=== PATIENT | female | born 1995 | race Caucasian/White ===

== ENCOUNTER 2019-05-05 05:55 | Inpatient (IN) | payer BC, OTHER, SELFPAY ==
[2017-07-02 11:42] VITALS: BMI 29.1
[2019-05-05] MEDS: Oxytocin 30 units/NS 500 ml 30 UNITS/500 ML IV.SOLN 334 UNITS IV (06:05)
[2019-05-05 06:28] VITALS: BMI 29.2
--- NOTE | 2019-05-05 06:46 | HP.PCM_ITS ---
History Date of Admission: 05/05/19 History of this : Patient presents after delivery at home. She did not know that she was . She feels sore but otherwise is doing OK. Her vaginal bleeding is minimal. Medical History: Medical History (Last Updated 07/02/17 @ 11:51 by Mirtha Mojica) Anemia D64.9 Knee pain M25.569 Von Willebrand disease D68.0 Allergies aspirin Allergy (Verified 05/05/19 06:40) Unknown cant take d/t von wildebrandts NSAIDS (Non-Steroidal Anti-Inflamma Allergy (Verified 05/05/19 06:40) Other cant take d/t von wildebrands Home Medications: Home Medications Control 1 tab PO DAILY 12/02/14 Melatonin 10 mg PO QHS PRN 05/05/19 Multivitamin [Animal Chews] 1 ea PO 05/05/19 Smoking Status: Never smoker Alcohol: Rare History Past Pregnancies: Past Pregnancies Delivery Date Name GA/ Weeks Outcome Route Wt Infant Sex Labor Length Anesthesia Delivery Location Provider FOB Labs: No care Physical Exam General: Alert, Oriented x3 Abdomen: Soft, Non Tender, Non-Distended ORDERING MACHINE OPERATOR: Normal external genitalia - no vaginal lacerations Assessment/Plan All Active Problems (Last Updated 07/02/17 @ 11:51 by Mirtha Mojica) Pharyngitis, acute (Acute) This is a 23 year-old, G1, P1, s/p at home Heme - patient is HDS. H/o von willebrands disease. CBC pending. battery ordered. No care - check battery, urine toxicology & get social work consult.
[2019-05-05 07:09] LABS: Absolute Lymphocyte Count 0.88 X10^3/uL (0.83-4.51); Basophil# 0.03 X10^3/uL; Basophil% 0.2 % (0-1); Hematocrit 34.3 % (37-47); Hemoglobin 11.7 g/dL (12.0-15.0); Lymphocyte # 0.88 X10^3/ul (4.0); Lymphocyte % 4.5 % (19-41); Mean Corp Hgb Conc 34.1 g/dL (32-36); Mean Corpuscular Hgb 31.4 pg (27.0-32.0); Mean Platelet Vol. 11.2 fl (6.2-12.0); Monocyte# 0.65 X10^3/uL; Monocyte% 3.3 % (0-10); NRBC Flagged by Analyzer 0 % (0-5); Neutrophil # 17.95 X10^3/uL (2.7-7.7); Neutrophil % 91.5 % (47-70); POSITIVE MORPHOLOGY YES; Platelet Count 393 K/mm3 (150-450); RBC Distribution Width CV 12.8 % (11.6-14.6); RBC Distribution Width SD 43.1 fl (35.1-43.9); Red Blood Count 3.73 M/mm3 (4.2-5.4); White Blood Count 19.6 K/mm3 (4.4-11.0)
[2019-05-05 07:12] LABS: Differential Indicated SCAN CRITERIA MET
[2019-05-05 08:05] LABS: Amphetamine Urine VISTA NEGATIVE (<1000 ng/mL); Barbiturate Urine VISTA NEGATIVE (< 200 ng/mL); Benzodiazepine Urine VISTA NEGATIVE (< 200 ng/mL); Cocaine Urine VISTA NEGATIVE (< 300 ng/mL); Ecstacy Urine VISTA NEGATIVE (< 500 ng/mL); Methadone Urine VISTA NEGATIVE (< 300 ng/mL); PCP Urine VISTA NEGATIVE (< 25 ng/mL); THC Urine VISTA NEGATIVE (< 50 ng/mL); Vista UDS pH Range 5
--- NOTE | 2019-05-05 08:08 | NURSING ---
0808 late entry- delivered at 0500
[2019-05-05] MEDS: Acetaminophen 500 MG Tablet 1000 MG PO (08:11)
[2019-05-05 08:43] LABS: HIV - WCH Non-Reactive (Nonreactive); Hepatitis B Surface Antigen Non-Reactive (Nonreactive); Hepatitis C Antibody Non-Reactive (Nonreactive)
[2019-05-05 09:44] LABS: Chlamydia Trachomatis by PCR Negative (Negative); Neisserai gonorrhoeae by PCR Negative (Negative); Probe Check PASS; Sample Adequacy Control PASS; Specimen Processing Control PASS
[2019-05-05 13:35] VITALS: BP 113/73; PULSE 65; RESP 16; TEMP 36.7
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
[2019-05-05 17:00] VITALS: BP 103/65; PULSE 53; RESP 16; TEMP 36.2
--- NOTE | 2019-05-05 19:22 | PCM.PN.BLA ---
Progress Note At bedside to check on pt. She is doing well and desires to go home. Discussed PPBC- desires [place]. Reviewed discharge instructions. STROKE Vital Signs/Narrative: Vital Signs Temp Pulse Resp BP 05/05/19 17:00 97.2 F L 53 L 16 103/65
--- NOTE | 2019-05-05 19:23 | DCINST_ITS ---
Discharge Diet: No Restrictions Discharge Activity: May Shower, May Take a Tub Bath May resume sexual activity in: 6 weeks Ice area for (Minutes): 15 Weight Bearing Status: Weight bearing as tolerated Lifting Restrictions: None Call your doctor if you observe: Fever of 101 or Higher, Inability to urinate, Inability to have a bowel movement, Using more than one pad per hour, Shortness of breath, Dizziness, Chest pain, Increased palpitations (irregular heartbeat), Calf discomfort, Uncontrolled pain Cleanse incision/area with: Soap & Water Additional Instructions: If you experience any of the following, contact your healthcare provider. * Bleeding that soaks a pad every hour for 2 hours * Fever 100.4 or higher * Unrelieved incision or abdominal pain * Swelling, redness, discharge or bleeding from your incision or episiotomy site * Your incision begins to separate * Problems urinating (including inability to urinate or burning while urinating). * Visual changes * Severe headache * Flu-like symptoms * Pain or redness in one of both of your breasts * Pain, warmth, tenderness or swelling in your legs, especially the calf area * Frequent nausea and vomiting * Symptoms of depression or anxiety If you experience any of the following, call 911 or go to the nearest Emergency Room. * Chest pain * Problems breathing * Seizure activity * Partial or complete paralysis of a body part, slurred speech, weakness or drooping of the face, or a sudden inability to walk or hold your balance Allergies/Adverse Reactions: Allergies aspirin Allergy (Verified 05/05/19 06:40) Unknown cant take d/t von wildebrandts NSAIDS (Non-Steroidal Anti-Inflamma Allergy (Verified 05/05/19 06:40) Other cant take d/t von wildebrands Medications to take at Discharge Control 1 tab PO DAILY 12/02/14 Melatonin 10 mg PO QHS PRN 05/05/19 Multivitamin [Animal Chews] 1 ea PO 05/05/19 When: 1-2 weeks and in 6 weeks Primary Care Physician: Randi Connor MD [Primary Care Provider] - Test Results: Test results from this visit will be discussed in further detail at your follow- up appointment, if applicable.
[2019-05-05 21:02] VITALS: BP 104/75; PULSE 70; RESP 16; TEMP 37.2
[2019-05-08 03:26] LABS: Rapid Plasmin Reagin (RPR) NONREACTIVE (NONREACTIVE)
== END 2019-05-05 20:55 | disposition home or self-care (01) | DRG 998 ==
PROVIDERS: Admitting Provider Obstetrics & Gynecology; PCP Pediatrics; Visit Provider Obstetrics & Gynecology
DX: O99.12 Other diseases of the blood and blood-forming organs and certain disorders involving the immune mechanism complicating childbirth (principal); D68.0 Von Willebrand disease; Z3A.00 Weeks of gestation of pregnancy not specified; Z37.0 Single live birth
CPT/HCPCS: 80307; 85025; 86592; 86703; 86762; 86803; 86850; 86900; 86901; 87340; 87491; 87591; 90686

== ENCOUNTER → 2020-06-08 15:53 | Outpatient (CLI) | payer BC, OTHER, SELFPAY ==
[2020-06-15 10:32] LABS: CF, Screen Comment: (.)
== END ==
PROVIDERS: PCP Pediatrics; Visit Provider Obstetrics & Gynecology
DX: Z34.82 Encounter for supervision of other normal pregnancy, second trimester (principal)
CPT/HCPCS: 36415; 81220

== ENCOUNTER 2020-07-15 11:18 | Outpatient (CLI) | payer BC, SELFPAY ==
[2020-07-15 11:22] VITALS: PULSE 89; O2SAT 99
[2020-07-15 11:25] VITALS: BP 116/65; PULSE 87
[2020-07-15 11:31] VITALS: TEMP 36.7
[2020-07-15 11:54] VITALS: BMI 36.3
[2020-07-15 13:20] LABS: Bacteria 0 SEEN /hpf (None Seen); Mucous, Urine 0 SEEN /hpf (<or=2+); Red Blood Cells-Urine 0 SEEN /hpf (0-5)
[2020-07-15 13:22] LABS: Absolute Lymphocyte Count 2.24 X10^3/uL (0.83-4.51); Absolute Neutrophil Count 9.8 X10^3/uL (2.0-7.7); Basophil# 0.04 X10^3/uL; Basophil% 0.3 % (0-1); Eosinophils% 2.3 % (0-5); Hematocrit 35.1 % (37-47); Hemoglobin 11.6 g/dL (12.0-15.0); Lymphocyte # 2.24 X10^3/ul (0.83-4.51); Lymphocyte % 17.1 % (19-41); Mean Corpuscular Hgb 31.4 pg (27.0-32.0); Mean Corpuscular Volume 95.1 fL (81-99); Mean Platelet Vol. 10.6 fl (6.2-12.0); Monocyte# 0.58 X10^3/uL; Monocyte% 4.4 % (0-10); NRBC Flagged by Analyzer 0 % (0-5); Neutrophil # 9.84 X10^3/uL (2.7-7.7); Neutrophil % 75.4 % (47-70); Platelet Count 346 K/mm3 (150-450); RBC Distribution Width CV 13.9 % (11.6-14.6); RBC Distribution Width SD 48.9 fl (35.1-43.9); Red Blood Count 3.69 M/mm3 (4.2-5.4); White Blood Count 13.1 K/mm3 (4.4-11.0)
[2020-07-15 13:24] LABS: Color, Urine Yellow (Yellow); Glucose, Dipstick Normal (Normal); Ketone-Dipstick 15 mg/dl (Negative); Leukocyte Esterase-Dipstick 25 /ul (Negative); Nitrite-Dipstick Negative (Negative); Occult Blood-Urine Negative /ul (Negative); Protein-Dipstick Negative (Negative); Urine Bilirubin Dipstick Negative (Negative); Urine Clarity Clear (Clear); Urine Urobilinogen Normal (Normal)
[2020-07-15 13:29] LABS: Squamous Epithelial Cells - UA 0-5 SEEN /hpf (5-10); White Blood Cells 0-5 SEEN /hpf (0-5)
[2020-07-15 13:33] LABS: Protein, Urine (Random) 9.9 mg/dL (<11.9); Protein:Creat Ratio 170 mg/g CRE (0-200)
[2020-07-15 13:42] LABS: ALB/GLOB Ratio 0.6 RATIO (0.9-2.4); AST(SGOT) 28 U/L (15-37); Alanine Aminotransfer ALT/SGPT 15 U/L (13-56); Albumin, Serum 2.7 g/dL (3.2-5.0); Alkaline Phosphatase 91 U/L (45-117); Anion Gap 6 (5-15); BUN 5 mg/dL (7-18); BUN/Creat Ratio 9.2 RATIO (10-20); Calcium,Total 8.9 mg/dL (8.5-10.1); Chloride 108 mmol/L (98-107); Creatinine, Serum 0.54 mg/dL (0.55-1.02); EST Glomerular Filtration Rate 148 mL/min (>60); Est Glom Filt Rate - Afr Amer 179 mL/min (>60); Estimated Creatinine Clearance 139.92 ml/min; Globulin 4.6 g/dL (2.2-4.2); Glucose 70 mg/dL (74-106); LDH 336 U/L (84-246); Potassium 4.2 mmol/L (3.5-5.1); Protein, Total 7.3 g/dL (6.4-8.2); Sodium Level 137 mmol/L (136-145)
[2020-07-15 14:45] VITALS: BP 110/65; PULSE 89
--- NOTE | 2020-07-15 22:31 | OB.TRI.NOTE ---
HPI - General HPI Narrative TONNY RODRIGUES, is a 25 F at 26 weeks and 0 days with vaginal pressure and intermittent spots in her eyes for several weeks. PFSH Medical History (Updated 07/15/20 @ 22:[address] Terry Coe MD) Anemia Knee pain Von Willebrand disease Home Medications Control 1 tab PO DAILY 12/02/14 [History Last Taken 05/03/19 08:00] melatonin 10 mg PO QHS PRN 05/05/19 [History Last Taken 3 Months Ago ~02/02/19] norethindrone (contraceptive) 0.35 mg PO DAILY #30 tab 05/05/19 [Rx Last Taken Unknown] pediatric multivitamin 1 ea PO 05/05/19 [History Last Taken Unknown] Allergy/AdvReac Type Severity Reaction Status Date / Time aspirin Allergy Unknown Verified 05/05/19 06:40 NSAIDS (Non-Steroidal Allergy Other Verified 05/05/19 06:40 Anti-Inflamma Social History (Updated 07/02/17 @ 12:13 by He DELANEY, PA) Smoking Status: Never smoker History Elective abortions Hx Para 0 Spontaneous abortions Hx # Term Pregnancies Ectopic pregnancies Hx # Pregnancies Multiple births # of living children NST FHR Rate Baby A Baseline: 120 Variability:: Moderate Accelerations:: 10 x 10 Decelerations:: None NST Reactive:: Yes Uterine Activity:: Quiet Assessment & Plan Assessment/Plan (1) : Status: Acute Code(s): Z34.90 - Encounter for supervision of normal , unspecified, unspecified trimester Qualifiers: Weeks of gestation: 26 weeks Qualified Code(s): Z3A.26 - 26 weeks gestation of Plan: 25-year-old G2, P1 at 26 weeks and 0 days ruled out labor with closed cervix no signs of contractions on monitor. Intermittent spots in eyes for past several weeks blood pressures within normal limits and HELLP labs within normal limits. No signs of preeclampsia. Needs to p.o. hydrate and encourage balanced diet. Okay to discharge home, follow-up at scheduled appointments.
== END 2020-07-15 15:10 ==
LOC: WPOUT 11:21 → WP 11:22
PROVIDERS: PCP Pediatrics; Referring Provider Obstetrics & Gynecology; Visit Provider Obstetrics & Gynecology
DX: O26.892 Other specified pregnancy related conditions, second trimester (principal); Z3A.26 26 weeks gestation of pregnancy
CPT/HCPCS: 36415; 59025; 59050; 80053; 81001; 82570; 83615; 84156; 85025; 99218; G0378

== ENCOUNTER → 2020-07-29 10:08 | Outpatient (CLI) | payer BC, OTHER, SELFPAY ==
[2020-07-15 11:54] VITALS: BMI 36.3
[2020-07-29 11:06] LABS: Glucose Challenge Gest 1H 50g 124 mg/dL (70-140)
[2020-07-31 03:07] LABS: Chlamydia By Nucleic Acid AMP Negative (Negative)
[2020-07-31 09:32] LABS: Gonococcus By Nucleic Acid AMP Negative (Negative)
== END ==
PROVIDERS: PCP Pediatrics; Visit Provider Obstetrics & Gynecology
DX: Z34.83 Encounter for supervision of other normal pregnancy, third trimester (principal)
CPT/HCPCS: 36415; 82950; 87491; 87591

== ENCOUNTER → 2020-10-08 | Outpatient (CLI) | payer BC, OTHER, SELFPAY | END | disposition home or self-care (01) | LOC: LABSPEC 10:28 | PROVIDERS: PCP Pediatrics; Visit Provider Obstetrics & Gynecology | DX: Z36.85 Encounter for antenatal screening for Streptococcus B (principal) | CPT/HCPCS: 87081 ==

== ENCOUNTER 2020-10-25 16:03 | Inpatient (IN) | payer BC, SELFPAY ==
[2020-10-25] VITALS (20 sets, daily range): BP systolic 99–131; BP diastolic 59–79; PULSE 68–102; TEMP 36.4–36.7; O2SAT 89–100; BMI 36.5
[2020-10-25] MEDS: Lactated Ringers 1,000 ML 50 ML IV (16:20)
[2020-10-25 16:55] LABS: Absolute Lymphocyte Count 1.99 X10^3/uL (0.83-4.51); Absolute Neutrophil Count 8.4 X10^3/uL (2.0-7.7); Basophil# 0.03 X10^3/uL; Basophil% 0.3 % (0-1); Eosinophil# 0.04 X10^3/uL; Eosinophils% 0.4 % (0-5); Hematocrit 32.7 % (37-47); Hemoglobin 10.5 g/dL (12.0-15.0); Lymphocyte # 1.99 X10^3/ul (0.83-4.51); Lymphocyte % 17.9 % (19-41); Mean Corp Hgb Conc 32.1 g/dL (32-36); Mean Corpuscular Hgb 28.7 pg (27.0-32.0); Mean Corpuscular Volume 89.3 fL (81-99); Mean Platelet Vol. 11.4 fl (6.2-12.0); Monocyte# 0.62 X10^3/uL; Monocyte% 5.6 % (0-10); NRBC Flagged by Analyzer 0 % (0-5); Neutrophil % 75.3 % (47-70); Platelet Count 325 K/mm3 (150-450); RBC Distribution Width CV 15.5 % (11.6-14.6); RBC Distribution Width SD 49.8 fl (35.1-43.9); Red Blood Count 3.66 M/mm3 (4.2-5.4); White Blood Count 11.1 K/mm3 (4.4-11.0)
--- NOTE | 2020-10-25 17:52 | PCM.HP.BLA ---
History and Physical Date of Admission: 10/25/20 Chief complaint: Decreased movement History of present illness: 25-year-old G2, P1 at 40 weeks and 4 days with COMFORT: 10/21/2020 by 20wk U/s arrives with decreased movement since yesterday. Denies headache, vision changes, chest pain, shortness of breath, nausea vomiting, right upper quadrant pain. is complicated by von Willebrand's type I, history of depression, history of delivery at 29 weeks Obstetric history: G1: 29-week home delivery 05/05/2019 G2: Current Past medical history: Von Willebrand's type I Medications: vitamin Past surgical history: Denies Allergies: No known drug allergies Social history: Former smoker, denies alcohol use or drug use Family history: Denies history DVT or PE Review of systems: Besides the above pertinent positives a full review of systems was performed and found to be negative Physical exam: Vitals: Blood pressure 128/76 pulse 80 General: Normal-appearing no acute distress HEENT: Normocephalic atraumatic no cervical of adenopathy Cardiac/extremity: Nonlabored breathing, no use of accessory muscles Abdomen: Soft, nontender, gravid Pelvic exam: 4/60/-3. AROM clear fluid. FSE placed Extremities: No peripheral edema normal peripheral pulses Psych: Normal affect normal demeanor nonpressured speech Labs: White blood cell count 11.1, hemoglobin 10.5, hematocrit 32.7, platelets 325 Assessment plan: 25-year-old G2, P1 at 40 weeks and 4 days with decreased movement will perform induction of labor at term Admit labor and delivery CEFM GBS negative AROM and Pitocin induction Von Willebrand's type I: Sees Dr. Gerri Arellano who instructed for nasal Stimate immediately after delivery 1 spray each nostril. Can use DDAVP 0.3 mcg/kg every 12 hours if persistent bleeding. To follow-up with Dr. Miguelina Arellano within a week after delivery. No epidural during labor. Patient's recent labs show normal von Willebrand's factor. Routine orders
[2020-10-25] MEDS: 0.9% Normal Saline 100 ML IV.SOLN. 300 ML INTRA-UTER (18:23)
[2020-10-25] MEDS: Lactated Ringers 500 ML 999 ML IV ×2 (18:58→21:45)
--- NOTE | 2020-10-25 19:11 | PCM.PN.OB ---
Subjective Subjective Reports contractions are intense. Objective Data Objective Data Vital Signs: Vital Signs Temp Pulse BP Pulse Ox 97.6 F L 76 99/64 98 10/25/20 14:55 10/25/20 18:26 10/25/20 18:26 10/25/20 14:55 Weight: 93.44 kg Body Mass Index (BMI) 36.5 Intake & Output: Intake and Output for Last 24 Hours 10/23/20 10/24/20 10/25/20 23:59 23:59 23:59 Intake Total 212.50 / 212.50 Output Total 200 / 200 Balance 12.50 / 12.50 Lab / Micro Data Result Diagrams: 10/25/20 16:20 Labs: Laboratory Results - last 24 hr 10/25/20 16:20: WBC 11.1 H, RBC 3.66 L, Hgb 10.5 L, Hct 32.7 L, MCV 89.3, MCH 28.7, MCHC 32.1, RDW Std Deviation 49.8 H, RDW Coeff of Neyda 15.5 H, Plt Count 325, MPV 11.4, Immature Gran % (Auto) 0.500, Neut % (Auto) 75.3 H, Lymph % (Auto) 17.9 L, [place] % (Auto) 5.6, Eos % (Auto) 0.4, Baso % (Auto) 0.3, Absolute Neuts (auto) 8.4 H, Absolute Lymphs (auto) 1.99, Nucleated RBC % 0 10/25/20 16:20: Blood Type O POSITIVE, Antibody Screen NEGATIVE Physical Exam Const alert, oriented x3 and no apparent distress Narrative: /-1 per recent RN exam NST FHR Rate Baby A Baseline: 145 Variability:: Moderate Accelerations:: None Decelerations:: Variable NST Reactive:: Appropriate for gestational age FHR Category:: Category II Uterine Activity:: 05/26 Assessment & Plan (1) 40 weeks gestation of : PLAN: s/p amniotomy Amnioinfusion administered and fluid bolus given Variability improved from prior Continue expectant management (2) Von Willebrand disease, type I: PLAN: T&C x 2 U PRBC DDAVP intranasal planned for post delivery No epidural
[2020-10-26] VITALS (18 sets, daily range): BP systolic 104–130; BP diastolic 52–79; PULSE 64–90; RESP 16–18; TEMP 36.1–36.6; O2SAT 95–100
[2020-10-26] MEDS: Cefazolin 2 GM in 0.9% Normal Saline 100 ML IV (00:45)
[2020-10-26] MEDS: Methylergonovine 0.2 MG/ML Ampul IM (00:52)
--- NOTE | 2020-10-26 01:36 | EX.PCM.OBRPT ---
Assessment & Plan (1) delivery delivered: (2) Von Willebrand disease, type I: (3) Uterine rupture: Details Operative Information Date of Procedure: 10/26/20 Pre-Operative Diagnosis: 1. 40 5/7 weeks gestation 2. Persistent category 2 heart rate tracing 3. Von Willebrand disease type I Post-Operative Diagnosis: 1. 40-5/7 weeks gestation 2. Persistent category 2 heart rate tracing 3. Von Willebrand disease type I 4. Posterior uterine rupture Indications for : Distress Classification: AC Procedure Type: low transverse parole hearing officer #1: Fransisca Villegas Type of Anesthesia: General Anesthesiologist: Avi Meléndez Special Medications: DDAVP administered intranasally prior to section Tranexamic acid intraop Methergine intraop Antibiotic Given: Ancef 2 grams IV x1 and Zithromax 500 mg/5 mL X1 Drain: Hinds to straight drain Estimated Blood Loss: 1000 ml Fluids Replaced: 1000 ml Findings Description of Procedure: Indications: 25-year-old 2 para 0-1-0-1 admitted at 40-4/7 weeks gestational age with complaint of persistent decreased movement. She was 3 to 4 cm dilated and advised to proceed with induction of labor. Amniotomy was performed and she progressed to 8 cm dilation however had recurrent variable decelerations despite amnioinfusion and maternal repositioning, with dropping baseline. She was taken to the OR for double set up however with continued observation the heart rate tracing was nonreassuring and I advised her to proceed with section. Procedure: The patient was taken to the operating room, SCDs were applied and Hinds catheter placed. The abdomen was prepped and draped in sterile fashion. She was induced under general anesthesia and intubated. A Christian Hayden incision was made using a scalpel and brought down to incise the subcutaneous tissue and rectus fascia at the midline. Subcutaneous tissue was bluntly dissected off the fascia laterally. The fascial incision was dissected laterally and cephalad bluntly. The rectus muscles were bluntly at the midline. The peritoneum was identified and entered bluntly. Bladder blade was placed in the abdomen. A low transverse hysterotomy was made using the [Vazquez scissors] to level of the membranes with amniotomy. The hysterotomy was extended bluntly cephalad and caudad. The head was elevated and brought to the level of the hysterotomy and the delivered revealing a [female] . The cord was doubly clamped and cut. The infant was passed to awaiting [nursery personnel]. The placenta was [expressed] from the uterus and appeared intact on inspection. The uterus was exteriorized and cleared of debris. Small bowel was observed anterior to the left uterus and appeared to have traversed through the posterior uterus and through the anterior hysterotomy. The bowel was reduced and the posterior uterus inspected further demonstrating approximately 1-1/2 cm left posterior uterine wall defect in the lower segment. This area was clamped and notably appeared separate from the anterior hysterotomy. The hysterotomy was repaired anteriorly using 0 Vicryl running lock suture. Attention was turned posteriorly the bowel was packed and retracted. The posterior defect was reapproximated using 0 Vicryl running lock stitch. A second imbricating layer was performed with good hemostasis there. The bowel was unpacked. Attention was turned anteriorly and the anterior hysterotomy repair was imbricated using 0 Vicryl on the second layer. The bladder blade was removed. The anterior cul-de-sac was cleared of debris. The uterus and adnexa were returned to the abdomen. Some bleeding from the midline hysterotomy repair appeared to resolve following compression. Jose was placed along the hysterotomy for further hemostasis. The peritoneum was reapproximated using 2-0 Vicryl running suture. The subcutaneous tissue was reapproximated using 2-0 Vicryl. The skin was closed using 4-0 Monocryl subcuticularly by the DENTAL AIDE under my supervision. A Mepilex occlusive dressing was placed over the incision. The fundus was firm. The patient was then transferred to the recovery room without complication. Sponge, instrument, and needle counts were correct ?2. Presentation: Positive for Vertex Amniotic Membrane Rupture Type: Artificial Amniotic Fluid Description: Clear Placental Delivery Description: Expressed Placenta Disposition: [facility] Cord Vessel Description: 3 Vessels Cord Entanglement: - (Around neck x2, reducible) Nuchal Cord Compression: With compression Cord Gases: ABG and VBG A Gender: Female (1 minute): 7 (5 minute): 8 Delayed Cord Clamping: No Complications Risks of Surgery Discussed w/Patient: Bleeding, Anesthesia Risks, Infection, Injury to surrounding structure(s) including bowel and bladder and -
[2020-10-26] MEDS: Oxytocin 30 units/NS 500 ml 30 UNITS/500 ML IV.SOLN 167 UNITS IV (02:12)
[2020-10-26] MEDS: Acetaminophen 500 MG Tablet 1000 MG PO ×3 (02:29→20:31)
[2020-10-26] MEDS: 0.9% Saline Lock 10 ML Syringe IV ×2 (02:38→04:12)
[2020-10-26] MEDS: Ondansetron 4 MG/2 ML Vial IV ×3 (02:38→15:51)
[2020-10-26] MEDS: HYDROmorphone 1 MG/ML Syringe IV ×3 (04:12→15:51)
[2020-10-26] MEDS: Lactated Ringers 1,000 ML 100 ML IV ×2 (05:04→15:43)
[2020-10-26] MEDS: oxyCODONE 5 MG Tablet PO (06:15)
--- NOTE | 2020-10-26 08:07 | PCM.PN.OB ---
Subjective Subjective Patient doing well, no overnight complaints. Pain well controlled. Objective Data Objective Data Vital Signs: Vital Signs Temp Pulse Resp BP Pulse Ox 97.3 F L 65 16 112/52 L 96 10/26/20 08:03 10/26/20 08:03 10/26/20 08:03 10/26/20 08:03 10/26/20 08:03 Oxygen Delivery Method Room Air Weight: 206 lb Body Mass Index (BMI) 36.5 Intake & Output: Intake and Output for Last 24 Hours 10/24/20 10/25/20 10/26/20 23:59 23:59 23:59 Intake Total 1645.83 / 1645.83 1404.85 / 1404.85 Output Total 200 / 800 850 / 850 Balance 1445.83 / 845.83 554.85 / 554.85 Lab / Micro Data Result Diagrams: 10/25/20 16:20 Labs: Laboratory Results - last 24 hr 10/25/20 16:20: WBC 11.1 H, RBC 3.66 L, Hgb 10.5 L, Hct 32.7 L, MCV 89.3, MCH 28.7, MCHC 32.1, RDW Std Deviation 49.8 H, RDW Coeff of Neyda 15.5 H, Plt Count 325, MPV 11.4, Immature Gran % (Auto) 0.500, Neut % (Auto) 75.3 H, Lymph % (Auto) 17.9 L, Saunders % (Auto) 5.6, Eos % (Auto) 0.4, Baso % (Auto) 0.3, Absolute Neuts (auto) 8.4 H, Absolute Lymphs (auto) 1.99, Nucleated RBC % 0 10/25/20 16:20: Blood Type O POSITIVE, Antibody Screen NEGATIVE 10/25/20 16:20: Crossmatch See Detail Micro: Microbiology 10/25/20 16:20 Mucosa - Nose SARS-CoV-2 Antigen (Rapid) - Final Physical Exam Const alert, oriented x3, no apparent distress, average body habitus, healthy appearing and well nourished HEENT normocephalic and moist oral mucous membranes Face and Sinus: normal facial exam Neck full ROM Resp normal respiratory effort, no retractions and no use of accessory muscles Extremity normal to inspection, full ROM and no clubbing, cyanosis or edema Psych mental status grossly normal, affect normal, speech normal and activity/motor behavior normal Assessment & Plan (1) delivery delivered: PLAN: Postoperative day 0 status post primary section for nonreassuring heart tones. Pain well controlled. Breast-feeding. Von Willebrand's type I, given nasal Stimate prior to surgery, given Methergine, given TXA at time of surgery. At this time bleeding stable, will continue to monitor. Will treat if bleeding, otherwise expectant management
[2020-10-26] MEDS: Cefazolin 1 GM/50 ML BAG IV ×2 (09:15→17:49)
[2020-10-26 13:00] LABS: Absolute Lymphocyte Count 2.18 X10^3/uL (0.83-4.51); Absolute Neutrophil Count 11.2 X10^3/uL (2.0-7.7); Basophil# 0.03 X10^3/uL; Basophil% 0.2 % (0-1); Eosinophil# 0.03 X10^3/uL; Eosinophils% 0.2 % (0-5); Hematocrit 26.9 % (37-47); Hemoglobin 8.7 g/dL (12.0-15.0); Lymphocyte # 2.18 X10^3/ul (0.83-4.51); Mean Corp Hgb Conc 32.3 g/dL (32-36); Mean Corpuscular Hgb 28.9 pg (27.0-32.0); Mean Corpuscular Volume 89.4 fL (81-99); Monocyte# 1.03 X10^3/uL; Monocyte% 7.1 % (0-10); NRBC Flagged by Analyzer 0 % (0-5); Neutrophil # 11.22 X10^3/uL (2.7-7.7); Platelet Count 270 K/mm3 (150-450); RBC Distribution Width CV 15.5 % (11.6-14.6); RBC Distribution Width SD 50.5 fl (35.1-43.9); Red Blood Count 3.01 M/mm3 (4.2-5.4); White Blood Count 14.6 K/mm3 (4.4-11.0)
--- NOTE | 2020-10-26 13:03 | NURSING ---
Pt very lightheaded. Laid pt flat in bed. Pt states that she is still lightheaded. Called lab and asked them to run her CBC stat. See charting for vital signs. Abdomen soft, flat, non-distended, fundus firm, bleeding scant on becky pad
--- NOTE | 2020-10-26 13:15 | NURSING ---
Called Dr. Coe at this time to update on Pt's CBC results and that pt looks pale and is light headed while laying flat or sitting up in bed.Informed him of recent VS. States to do a repeat CBC around 1800. today
[2020-10-26 18:27] LABS: Absolute Lymphocyte Count 2.84 X10^3/uL (0.83-4.51); Absolute Neutrophil Count 10.6 X10^3/uL (2.0-7.7); Basophil# 0.02 X10^3/uL; Basophil% 0.1 % (0-1); Eosinophil# 0.06 X10^3/uL; Eosinophils% 0.4 % (0-5); Hematocrit 25.9 % (37-47); Hemoglobin 8.2 g/dL (12.0-15.0); Lymphocyte # 2.84 X10^3/ul (0.83-4.51); Lymphocyte % 19.8 % (19-41); Mean Corp Hgb Conc 31.7 g/dL (32-36); Mean Corpuscular Hgb 28.4 pg (27.0-32.0); Mean Corpuscular Volume 89.6 fL (81-99); Mean Platelet Vol. 11.1 fl (6.2-12.0); Monocyte# 0.84 X10^3/uL; Monocyte% 5.8 % (0-10); NRBC Flagged by Analyzer 0 % (0-5); Neutrophil # 10.56 X10^3/uL (2.7-7.7); Neutrophil % 73.6 % (47-70); Platelet Count 270 K/mm3 (150-450); RBC Distribution Width CV 15.7 % (11.6-14.6); RBC Distribution Width SD 50.8 fl (35.1-43.9); Red Blood Count 2.89 M/mm3 (4.2-5.4); White Blood Count 14.4 K/mm3 (4.4-11.0)
[2020-10-26] MEDS: Enoxaparin 40 MG/0.4 ML Syringe SC (20:31)
[2020-10-27] VITALS: BP 99/51; PULSE 73; RESP 16; TEMP 36.3; O2SAT 97
[2020-10-27] MEDS: Acetaminophen 500 MG Tablet 1000 MG PO ×4 (02:33→20:21)
--- NOTE | 2020-10-27 03:30 | NURSING ---
Pt had Hinds catheter in for over 24 hours due to pt's repeated lightheadedness, nausea, and vomiting with any movement/attempt to stand - MD aware.
[2020-10-27 03:31] VITALS: BP 110/54; PULSE 68; RESP 16; TEMP 36.4; O2SAT 95
[2020-10-27 06:30] LABS: Hematocrit 28.4 % (37-47); Mean Corp Hgb Conc 31.7 g/dL (32-36); Mean Corpuscular Hgb 28.9 pg (27.0-32.0); Mean Corpuscular Volume 91.3 fL (81-99); Mean Platelet Vol. 10.6 fl (6.2-12.0); Platelet Count 325 K/mm3 (150-450); RBC Distribution Width CV 15.9 % (11.6-14.6); RBC Distribution Width SD 51.8 fl (35.1-43.9); Red Blood Count 3.11 M/mm3 (4.2-5.4); White Blood Count 16.6 K/mm3 (4.4-11.0)
[2020-10-27 08:00] VITALS: BP 102/57; PULSE 82; RESP 16; TEMP 36.4; O2SAT 98
[2020-10-27 14:16] VITALS: BP 107/66; PULSE 84; RESP 16; TEMP 36.4; O2SAT 99
[2020-10-27] MEDS: oxyCODONE 5 MG Tablet PO (16:11)
[2020-10-27] MEDS: Ondansetron ODT 4 MG Tablet PO (16:11)
[2020-10-27] MEDS: Enoxaparin 40 MG/0.4 ML Syringe SC (18:51)
[2020-10-27 20:18] VITALS: BP 113/61; PULSE 91; RESP 18; TEMP 36.1; O2SAT 95
--- NOTE | 2020-10-27 21:21 | PCM.PN.OB ---
Subjective Subjective Pain is manageable with tylenol and oxycodone. She is out of bed, walking and voiding without difficulty. No flatus yet. She tolerates PO without nausea or vomiting. Denies heavy bleeding. She is and pumping to stimulate milk further. Objective Data Objective Data Vital Signs: Vital Signs Temp Pulse Resp BP Pulse Ox 97 F L 91 18 113/61 95 10/27/20 20:18 10/27/20 20:18 10/27/20 20:18 10/27/20 20:18 10/27/20 20:18 Oxygen Delivery Method Room Air Weight: 93.44 kg Body Mass Index (BMI) 36.5 Intake & Output: Intake and Output for Last 24 Hours 10/25/20 10/26/20 10/27/20 23:59 23:59 23:59 Intake Total 1645.83 / 1645.83 2704.85 / 2704.85 1000 / 1000 Output Total 200 / 800 1750 / 1750 400 / 400 Balance 1445.83 / 845.83 954.85 / 954.85 600 / 600 Lab / Micro Data Result Diagrams: 10/27/20 06:25 Labs: Laboratory Results - last 24 hr 10/27/20 06:25: WBC 16.6 H, RBC 3.11 L, Hgb 9.0 L, Hct 28.4 L, MCV 91.3, MCH 28.9, MCHC 31.7 L, RDW Std Deviation 51.8 H, RDW Coeff of Neyda 15.9 H, Plt Count 325, MPV 10.6 Micro: Microbiology 10/25/20 16:20 Mucosa - Nose SARS-CoV-2 Antigen (Rapid) - Final Physical Exam Const alert, oriented x3 and no apparent distress Resp normal respiratory effort, normal air movement and clear to auscultation bilaterally Cardio regular rate, regular rhythm, S1 normal heart sound and S2 normal heart sound GI normal to inspection, nondistended, normoactive bowel sounds, soft to palpation, non-tender and non-distended GI Narrative: incisional dressing c/d/i Narrative: Fundus firm and nontender Manual OB Exam: other lochia scant Uterus Palpation: uterus fundus firm Extremity no calf tenderness Extremity Narrative: no LE edema Assessment & Plan (1) delivery delivered: COMMENT: 25yo POD#1 s/p PLTCS PLAN: O positive Routine postop care Ambulation encouraged (2) Uterine rupture: QUALIFIERS: Encounter type: initial encounter Qualified Code(s): S37.69XA - Other injury of uterus, initial encounter (3) Von Willebrand disease, type I: PLAN: H/H stable Fe supplementation on discharge
[2020-10-28 02:25] VITALS: BP 106/81; PULSE 74; RESP 18
[2020-10-28] MEDS: Acetaminophen 500 MG Tablet 1000 MG PO ×3 (02:27→15:14)
[2020-10-28] MEDS: oxyCODONE 5 MG Tablet PO (04:59)
[2020-10-28] MEDS: Ondansetron ODT 4 MG Tablet PO (04:59)
--- NOTE | 2020-10-28 06:49 | PCM.PN.OB ---
Subjective Subjective Continues to do well this morning. No flatus yet or bowel movement. Pain is controlled and she feels less stiff today. Denies heavy lochia. Objective Data Objective Data Vital Signs: Vital Signs Temp Pulse Resp BP Pulse Ox 97 F L 74 18 106/81 H 95 10/27/20 20:18 10/28/20 02:25 10/28/20 02:25 10/28/20 02:25 10/27/20 20:18 Oxygen Delivery Method Room Air Weight: 93.44 kg Body Mass Index (BMI) 36.5 Intake & Output: Intake and Output for Last 24 Hours 10/26/20 10/27/20 10/28/20 23:59 23:59 23:59 Intake Total 2704.85 / 2704.85 1000 / 1000 Output Total 1750 / 1750 400 / 400 Balance 954.85 / 954.85 600 / 600 Lab / Micro Data Result Diagrams: 10/27/20 06:25 Micro: Microbiology 10/25/20 16:20 Mucosa - Nose SARS-CoV-2 Antigen (Rapid) - Final Physical Exam Const alert, oriented x3 and no apparent distress Resp normal respiratory effort, normal air movement and clear to auscultation bilaterally Cardio regular rate, regular rhythm, S1 normal heart sound and S2 normal heart sound GI normal to inspection, nondistended, normoactive bowel sounds, soft to palpation, non-tender and non-distended GI Narrative: incisional dressing c/d/i Manual OB Exam: other lochia scant Uterus Palpation: uterus fundus firm Extremity no calf tenderness Assessment & Plan (1) delivery delivered: COMMENT: 25yo POD#2 s/p PLTCS PLAN: Routine postop care Rh positive (2) Uterine rupture: QUALIFIERS: Encounter type: subsequent encounter Qualified Code(s): S37.69XD - Other injury of uterus, subsequent encounter PLAN: Reviewed intraop findings with patient Discussed small though increased risk for uterine rupture associated with future labor. (3) Von Willebrand disease, type I: PLAN: Normal postop lochia
--- NOTE | 2020-10-28 07:00 | PCM.DC ---
Discharge Instructions Diet Discharge Diet: No restrictions Activity Discharge Activity: Return to Normal Activity and May Shower May resume sexual activity in: 4-6 weeks Lifting Restrictions: 10 lb Dressing / Incision Call your doctor if you observe: Using more than 1 pad per hour, Shortness of breath, Chest pain, Calf discomfort, Uncontrolled pain and - (Persistent or severe headache) Suture Line Care: Avoid Pulling/Pushing Remove Dressing in: 4 days Cleanse incision/area with: Soap & Water Follow Up Care Please Follow Up With: Terry Coe MD Test Results: Test results from this visit will be discussed in further detail at your follow-up appointment, if applicable. Discharge Plan Admission Admit Date/Time: 10/25/20 16:03 Primary Reason for Your Visit: section Attending Provider: Ani Cunningham Primary Care Provider: Radni Connor Instructions Patient Instructions: After a Discharge Orders/Prescriptions Prescriptions: New acetaminophen 500 mg Tablet 1,000 mg PO Q6H PRN (Reason: pain) Qty: 0 RF: 0 oxycodone 5 mg Tablet 5 mg PO Q6H PRN PRN (Reason: Pain Score 4-10) 7 Days Qty: 12 RF: 0 Continued desmopressin 150 mcg/spray (0.1 mL) [place],Non-Aerosol INTRANASAL RF: 0 multivitamin with iron RF: 0 Disposition Disposition (needs filled in before D/C Order can be placed): Home, Self Care
[2020-10-28 09:00] VITALS: BP 112/65; PULSE 80; RESP 16; TEMP 36.3; O2SAT 97
[2020-10-28 15:16] VITALS: BP 120/74; PULSE 80; RESP 16; TEMP 36.3; O2SAT 98
== END 2020-10-28 17:20 | disposition home or self-care (01) | DRG 786 ==
LOC: WPOUT 16:05 → WP 10-26 00:57
PROVIDERS: Obstetrics & Gynecology; Admitting Provider Obstetrics & Gynecology; PCP Pediatrics; Referring Provider Obstetrics & Gynecology; Visit Provider Obstetrics & Gynecology
DX: O76 Abnormality in fetal heart rate and rhythm complicating labor and delivery (principal); O71.1 Rupture of uterus during labor; O99.12 Other diseases of the blood and blood-forming organs and certain disorders involving the immune mechanism complicating childbirth; D68.0 Von Willebrand disease; O69.1XX0 Labor and delivery complicated by cord around neck, with compression, not applicable or unspecified; Z3A.40 40 weeks gestation of pregnancy; Z37.0 Single live birth
CPT/HCPCS: 59025; 59050; 85025; 85027; 86850; 86900; 86901; 86920; 87426; 99218; 99251; J7120; A4216; G0378; G0463; J2405

== ENCOUNTER → 2021-09-09 | Outpatient (CLI) | payer BC, SELFPAY ==
[2021-09-09 11:53] LABS: D-Dimer Quantitative (DVT/PE) 0.39 FEU/ug/m (0.27-0.49)
== END | disposition home or self-care (01) ==
LOC: LABSPEC 11:19
PROVIDERS: PCP Pediatrics; Referring Provider Physician Assistant; Visit Provider Physician Assistant
DX: R07.81 Pleurodynia (principal)
CPT/HCPCS: 85379

== ENCOUNTER → 2021-10-19 | Outpatient (CLI) | payer BC, SELFPAY ==
[2021-10-19 10:58] LABS: Erythrocyte Sedimentation Rate 14 mm/hr (0-30)
[2021-10-19 11:09] LABS: CRP 4.64 mg/L (0.0-3.0)
== END | disposition home or self-care (01) ==
LOC: LABSPEC 10:49
PROVIDERS: PCP Pediatrics; Visit Provider Family Medicine
DX: K92.2 Gastrointestinal hemorrhage, unspecified (principal)
CPT/HCPCS: 85652; 86140

== ENCOUNTER 2022-07-25 22:31 | Emergency (ER) | payer MEDICAID, SELFPAY ==
[2022-07-25 22:33] VITALS: BP 122/78; PULSE 89; RESP 15; TEMP 36.3; O2SAT 98
[2022-07-25 23:31] VITALS: BMI 19.1
[2022-07-26] MEDS: Tetracaine 0.5% Ophthalmic Bottle 1 DRP LEFT EYE (00:14)
--- NOTE | 2022-07-26 00:44 | EX.ED.VIS.EY ---
HPI History of Present Illness Chief Complaint: Eye Problem Narrative Narrative: Patient is a 27-year-old female with past medical history of von Willebrand's disease. She states that she went to an eye doctor today because she was trying to get a fake eyelash out of her eye the other day and believes she scraped it with the tweezers. She states that the eye doctor confirmed she had a corneal abrasion and placed her on antibiotic drops. She states has been no new trauma but since using the drops she has had increased eye redness pain and discharge and therefore comes in for evaluation. She denies any contact lens use [facility] Medical History (Updated 07/26/22 @ 03:[address] Randall Lin, DO) Anemia Chlamydia infection affecting Knee pain MRSA infection depression Von Willebrand disease Home Medications desmopressin 150 mcg/spray (0.1 mL) nasal spray mcg intranasal von willebrand type 1 10/25/20 [History Last Taken 10/18/15] multivitamin with iron 10/25/20 [History Last Taken 10/24/20] acetaminophen 500 mg tablet 1,000 mg PO Q6H PRN pain #0 tabs 10/28/20 [Rx Last Taken Unknown] oxycodone 5 mg tablet 5 mg PO Q6H PRN PRN Pain Score 4-10 7 days #12 tabs 10/28/20 [Rx Last Taken Unknown] erythromycin 5 mg/gram (0.5 %) eye ointment 1 applic RIGHT EYE 4X/DAY 5 days #3.5 grams 07/26/22 [Rx Last Taken Unknown] Allergy/AdvReac Type Severity Reaction Status Date / Time aspirin Allergy Unknown Verified 07/25/22 22:36 NSAIDS (Non-Steroidal Allergy Other Verified 07/25/22 22:36 Anti-Inflamma Social History (Updated 07/02/17 @ 12:13 by He DELANEY, RHETT) Smoking Status: Never smoker ROS ROS ED Constitutional Constitutional ED: Denies chills or fever(s) Eyes Eyes: Reports other Details: Positive photophobia ENT ENT ED: Denies sore throat Cardiovascular Cardiovascular: Denies chest pain Respiratory/Chest Respiratory/Chest: Denies cough or dyspnea Gastrointestinal Gastrointestinal: Denies abdominal pain, diarrhea, nausea or vomiting Genitourinary Genitourinary ED: Denies dysuria Musculoskeletal Musculoskeletal: Denies myalgias Integumentary Denies rash Neurologic Neurologic: Denies headache(s) EXAM Physical Exam Const Vital Signs: 07/25/22 22:33 Temperature 97.4 F L Temperature Source Temporal Pulse Rate 89 Respiratory Rate 15 Blood Pressure 122/78 H Blood Pressure Mean 92 Pulse Ox 98 Oxygen Delivery Method Room Air Positive well nourished and well developed General Appearance ED: well developed HEENT HEENT Narrative: Normocephalic atraumatic Eyes PERRL and EOMs intact bilaterally Eyes Narrative: Right eye has diffuse scleral injection with increased watery discharge present. Cummings lamp exam shows a large corneal abrasion essentially from the 11 to 12 o'clock position extending over the iris and just over the pupil. No obvious retained foreign body or globe rupture Neck supple Resp normal respiratory effort and clear to auscultation bilaterally Cardio regular rate and regular rhythm Extremity normal to inspection Neuro oriented x3 and CN's II-XII intact bilaterally Sensorium / Orientation: alert Psych mental status grossly normal Skin no rashes or lesions noted MDM MDM MDM Narrative Medical decision making narrative: Patient presented to ER with stable vitals and reported no history of contact lens use. She also had already seen the eye doctor and had pictures of her recent exam confirming a corneal abrasion. There is no obvious signs of globe rupture or retained foreign body. There is concern that patient is allergic to the prescribed eyedrops based on her symptoms worsening after using them. Patient was given tetracaine and there was near complete relief of pain confirming recent diagnosis of corneal abrasion. At this time as there is no signs of retained foreign body or globe rupture there is no need for further evaluation and patient can be discharged with a new antibiotic and erythromycin ointment as there is concern for potential allergic reaction. However with out signs of sustained retained foreign body or globe rupture there is no need for emergent ophthalmology consultation and patient is otherwise safe for discharge History & Record Review Discussion w/independent historian: Patient and Friend Discharge Plan Triage Chief Complaint: Eye Problem ED Provider: Randall Lin Dx/Rx/DC Orders Clinical Impression: Corneal abrasion, right, Von Willebrand disease, type I Instructions: Corneal Injury, ED Corneal Abrasion Prescriptions: New erythromycin 5 mg/gram (0.5 %) ointment 1 applic RIGHT EYE 4X/DAY 5 Days Qty: 3.5 0RF No Action desmopressin 150 mcg/spray (0.1 mL) [place],Non-Aerosol INTRANASAL multivitamin with iron acetaminophen 500 mg Tablet 1,000 mg PO Q6H PRN (Reason: pain) Qty: 0 0RF oxycodone 5 mg Tablet 5 mg PO Q6H PRN PRN (Reason: Pain Score 4-10) 7 Days Qty: 12 0RF Stand Alone Forms: ED Work / School Excuse Primary Care Provider: Georgi Carrion Referrals: Georgi Carrion, [Primary Care Provider] - Activity Restrictions/Additional Instructions: Please stop the antibiotic drops that was prescribed by the eye doctor as there is a possibility your worsening symptoms are secondary to allergic reaction. Begin taking the erythromycin ointment to help prevent infection and return to the ER should you have any further concerns Disposition Disposition: Home, Self Care Discharge Date/Time: 07/26/22 00:49
== END 2022-07-26 00:49 | disposition home or self-care (01) ==
PROVIDERS: Emergency Provider Emergency Medicine; PCP Student in an Organized Health Care Education/Training Program; Visit Provider Emergency Medicine
DX: S05.01XA Injury of conjunctiva and corneal abrasion without foreign body, right eye, initial encounter (principal); D68.01 Von Willebrand disease, type 1; W26.8XXA Contact with other sharp object(s), not elsewhere classified, initial encounter
CPT/HCPCS: 99283

== ENCOUNTER 2023-06-11 08:00 | Outpatient (RCR) | payer MEDICAID, SELFPAY ==
--- NOTE | 2023-06-11 09:05 | BH.SGPN.GN ---
Behaviors/Verbalizations/Mental Status: [Patient was alert and oriented, appropriately dressed and groomed. Eye contact was good, motor activity normal, speech within normal limits. Affect congruent, mood anxious. Thoughts linear, logical, no signs of hallucinations or delusions. Reviewed Patients symptom tracker and the patient reports depressed mood, anxiety/panic attacks, agitation/irritability/anger, self-harm urges, and thoughts/risk of suicide within normal limits.] Client Response/Progress/Benefit: [Patient was engaged and open to the discussion. Patient reported her mood to be ?anxious because of anticipation?. Patients first win is that she was able to cope with the urge of self-harm by getting a new tattoo that represents courage and fear. Patients second win is that she has been letting someone help her be medication compliant because she knows she does better when medicated but struggles to take her meds. Patients stressor is making it through the program and proving to her family that she can and will get better for her children and herself. Patient was interactive and respectful with other group members about their mental wins and stressors. Patient benefited from the discussion by listening to feedback and giving input on her peer?s stressors and mental health wins. Patient will continue with IOP treatment to help develop healthy skills, promote mood stability, and improve distress tolerance. ] Narrative Note: []
--- NOTE | 2023-06-11 10:15 | BH.SGPN.GN ---
Behaviors/Verbalizations/Mental Status: [] Eye contact is good. Motor activity is appropriate. Appearance is casual. Speech is Appropriate. Mood is depressed. Affect is congruent. Thoughts are linear and logical. No evidence of psychosis. Client Response/Progress/Benefit: [] Pt was engaged and an active participant in group discussions. Attentive during psychoeducation and participated in group activity. Group discussed what contributes to a person?s perspective and how perspective can positively or negatively impact mental health treatment. Participated in group discussion on things that can interfere with perspective which group identified as; mood, physical state, past experiences, relationships, anger, current stressors, finances, and several others. Pt appeared to benefit from increasing awareness of different perspectives and how they can affect mental health. Pt will continue IOP treatment to prevent decompensation/re-admission to psych unit, maintain safety, and improve functioning to return to work. Narrative Note: []
--- NOTE | 2023-06-11 11:15 | BH.SGPN.GN ---
Behaviors/Verbalizations/Mental Status: []Pt alert and oriented, casually dressed and groomed. Eye contact good. Motor activity appropriate. Speech within normal limits. Affect congruent, mood depressed and anxious. Thoughts linear, logical, no signs of hallucinations or delusions. Client Response/Progress/Benefit: []Pt was attentive and contributed to group discussion. Pt worked with group to identify strategies that can help with challenging negative perspective. Pt completed strengths exploration worksheet, identifying love, humor, optimism, empathy, and creativity as personal strengths. Pt able to acknowledge how these strengths are helping pt and can continue to help pt in mental health journey. Pt identified wanting to work on applying the same bentley to herself as she would others. Benefited from identifying personal strengths and strategies for enhancing use of identified strengths. Pt will continue IOP tx to work on application of distress tolerance skills, improve mood stability, and prevent decompensation. Narrative Note: []
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
--- NOTE | 2023-06-11 15:07 | BH.MTP_ITS ---
Master Treatment Plan Patient Information Program Physician:: Dr. Goode Primary Therapist:: Kirsten Falk [facility] Psychiatric Diagnoses Psychiatric Diagnoses:: 1. Bipolar 2 disorder F31.81 2. PTSD 3. Generalized anxiety disorder 4. Cluster B traits Diagnosis Code(s):: F31.81 Estimated LOS Estimated LOS (in weeks):: 6 Problem/Goal #1 Problem/Goal #1 Stated Goal:: Client will increase mood stability and decrease depressive symptoms, anhedonia, and hopelessness due to Bipolar 2 through Intensive Outpatient Program. Description of Barriers: Potential barriers include: negative thinking, cognitive distortions, apathy, hopelessness, and complicated family relationshi ps. Functional Impact: The patient is a 28-year-old but still female with a history of bipolar 2 disorder and ADHD who was referred to the [facility] behavioral health IOP by her outpatient psychiatric provider for worsening symptoms of depression and anxiety causing her to be unable to function well. admitted to [facility] psychiatric unit from May 11 to May 18, 2023. The patient overdosed on Zoloft prior to her admission on May 11. Work has been stressful and has contributed to her worsening symptoms as did a recent break-up with a boyfriend of 6 weeks. She has panic attacks 1-3 times per day. In the past 2 weeks her symptoms include still being depressed and sad and crying on occasion. Occasional hopelessness over certain aspects of her life only. She endorses worthlessness, guilt, decreased concentration, low energy, disruption of sleep due to panic attacks overnight and decreased appetite. Objectives Objective #1: Stated Objective: Client will learn and utilize 2-3 healthy coping strategies to manage depressive symptoms. Interventions: Therapist will utilize CBT techniques to assist client with understanding the connection between thoughts, feelings and behaviors. Education will be provided on behavioral activation. Therapist will assist client in learning internal coping strategies to manage depressive symptoms, along with helping client identify triggers. Discharge Criteria: Client will have achieved this goal when can verbalize and has practiced at least 2 healthy coping strategies that successfully manage depressive symptoms. Target Date: 07/23/23 Review Date: 07/09/23 Objective #2: Stated Objective: Client will identify and replace 2-3 negative thinking patterns that mediate feelings of hopelessness and helplessness. Interventions: Assist the client in identifying, challenging, and replacing dysfunctional thoughts with positive self-enhancing thoughts. Discharge Criteria: Client will have achieved this goal when can identify at least 2 negative thinking patterns, and replace thoughts with rational thoughts. Target Date: 07/23/23 Review Date: 07/09/23 Problem/Goal #2 Problem/Goal #2 Stated Goal:: Stabilize anxiety level while increasing ability to function on daily basis. Description of Barriers: Potential barriers include: negative thinking, cognitive distortions, apathy, hopelessness, and complicated family relationship s. Functional Impact: The patient is a 28-year-old but still female with a history of bipolar 2 disorder and ADHD who was referred to the [facility] behavioral health IOP by her outpatient psychiatric provider for worsening symptoms of depression and anxiety causing her to be unable to function well. admitted to [facility] psychiatric unit from May 11 to May 18, 2023. The patient overdosed on Zoloft prior to her admission on May 11. Work has been stressful and has contributed to her worsening symptoms as did a recent break-up with a boyfriend of 6 weeks. She has panic attacks 1-3 times per day. In the past 2 weeks her symptoms include still being depressed and sad and crying on occasion. Occasional hopelessness over certain aspects of her life only. She endorses worthlessness, guilt, decreased concentration, low energy, disruption of sleep due to panic attacks overnight and decreased appetite. Objectives Objective #1: Stated Objective: Client will learn and implement 2-3 calming skills to reduce overall anxiety and manage anxiety symptoms. Interventions: Therapist and group sessions will help client identify physiological warning signs of anxiety, increase awareness of thoughts that increase anxiety, and identify behaviors that reinforce anxious symptoms. Group and individual counseling will teach client calming skills to help manage anxious symptoms. Discharge Criteria: Client will have achieved this goal when can verbalize at least 2 calming skills and reports skills successfully help reduce anxious symptoms. Target Date: 07/23/23 Review Date: 07/09/23 Objective #2: Stated Objective: Client will learn and utilize 2-3 relaxation skills to utilize at bedtime. Interventions: Therapist will teach client relaxation skills and help client identify ways to incorporate relaxation into daily bedtime routine. Discharge Criteria: Client will have met this goal when she can verbalize at least 2 relaxation skills and has incorporated those skills into her bedtime routine. Target Date: 07/23/23 Review Date: 07/09/23
--- NOTE | 2023-06-12 09:05 | BH.SGPN.GN ---
Behaviors/Verbalizations/Mental Status: [] Eye contact is good. Motor activity is appropriate. Appearance is casual. Speech is Appropriate. Mood is depressed. Affect is congruent. Thoughts are linear and logical. No evidence of psychosis. Reviewed daily check in sheet and no reports of suicidal ideations or intent. Client Response/Progress/Benefit: [] Pt was an active participant in group discussion. Attentive. Daily symptom tracker notes 04/23 for depression and anxiety. This was pt's second day in IOP. She completed opposite action yesterday and had a picnic in the park with family rather than isolate. Discussed the benefits that this had on her mental health it recharged me and helped her live in the moment . Insight on how small actions can impact her overall mental health. Benefited from group support, encouragment, and feedback. Will continue in IOP to maintain safety, prevent decompensation/re-admission to psych unit, and to improve functioning to return to work. Narrative Note: []
--- NOTE | 2023-06-12 10:10 | BH.SGPN.GN ---
Behaviors/Verbalizations/Mental Status: []Client alert and oriented, casually dressed and groomed. Eye contact good. Motor activity appropriate. Speech within normal limits. Affect congruent, mood euthymic. Thoughts linear, logical, no signs of hallucinations or delusions. Client Response/Progress/Benefit: []Client receptive to session AEB providing input throughout, listening attentively to others, and taking notes. Attentive throughout psychoeducation on the cognitive triangle and maintenance cycles. Engaged in group discussion reviewing the impact of daily activities and behaviors in either reinforcing unhealthy maintenance cycles and depression or assisting in reducing symptoms (?down? vs ?up? activities). Client identified common ?down? activities they engage in as: Not eating, lack of self-care, overthinking, isolation, and avoidance. Common ?Up? activities client identified included: Meal planning, cleaning, engaging in self-care, maintaining a bedtime routine. Appeared to benefit from increased awareness of current behaviors and impact these have on mental health. Recommended to continue IOP to improve distress tolerance, improve view of self, and prevent decompensation.
--- NOTE | 2023-06-12 11:15 | BH.SGPN.GN ---
Behaviors/Verbalizations/Mental Status: []Eye contact is good. Motor activity is appropriate. Appearance is neat. Speech is Appropriate. Mood is euthymic. Affect is congruent. Thoughts are linear and logical. No evidence of psychosis. Client Response/Progress/Benefit: [] Pt responded well to session, attentive and engaged in group discussions and activity. Group discussed values and the benefits that knowing one's values can have on one's mental health. Pt explored own values and identified personal top values. Pt stated a personally important value is mental and emotional health. Pt set a goal to improve engagement in this value. Goal identified as challenging negative self-talk by saying one affirmation a day. Pt appeared to benefit from exploring values and creating a weekly goal. Pt also reported benefitting from the activity and the group encouragement today. Will continue in IOP to prevent decompensation, improve daily functioning, and increase healthy coping skills. ? Narrative Note: []
--- NOTE | 2023-06-12 14:02 | BH.MDN_ITS ---
Multi-Disciplinary Note Note 30-min Individual: Time Started:: 12:10 Date: 06/12/23 Purpose of session/treatment goals addressed:: Purpose of session was to address goals 1 and 2 from MTP. Eye Contact:: Good Motor Activity:: Appropriate Appearance:: Casual Speech:: Appropriate Mood:: Euthymic Affect:: Congruent Thoughts:: Linear, Logical and No evidence of hallucinations/delusions noted Staff Interventions:: CBT techniques, mindfulness skills, rapport building, strengths perspective, goal setting, taught coping skills and other (creating evening routine/schedule) Client Response:: Client reported overall her evening went okay, spending time thinking about what her routine can look like to help decrease ruminations. Client stated her sleep continues to be disrupted because she has nightmares every time she dreams which wakes her up in the middle of the night. Client stated she is taking a sleeping medication which helps her fall asleep, but is not helping her stay asleep. Therapist provided client with a nighttime routine check-list that she could reference and adjust to what she wants to do. Client stated she does think the checklist would be helpful because it keeps her focused on what needs to get done and can help her stay on track. Client and therapist worked together to create tentative evening routine that she could follow that incorporates self-care into her routine. Client stated she will try the routine out the next few nights and report back on how she thinks it is going. Risks/Concerns:: Client denies active suicidal ideation, plan, or intention to date. future oriented. identifies children as protective factor. Progress Toward Goals/Plan:: Client stated so far enjoying IOP because she is learning a lot of healthy skills and learning a lot about herself. Client reported a lot of the things that have been talked about in group are things she wasn't aware of and is happy to be learning how to manage her mental health b ashley. Client continues to report difficulty in the evening with increased ruminations and disrupted sleep. Client is to continue IOP to increase healthy coping, improve daily functioning, and prevent decompensation. Time Stopped:: 12:35
--- NOTE | 2023-06-13 09:30 | BH.NA ---
Physical Data Vital Signs Pulse Rate: 83 Blood Pressure: 124/77 Height/Weight Height: 1.6 m Weight:: 77.111 kg Weight in Pounds: 170.0 lbs Current Medication Compliance Medication Compliance Do you take your medication as prescribed?: Yes Nutritional History Appetite Nutritional Instructions: Describe your appetite:: Fair Additional nutritional information:: Client states in the last few months, her weight has fluctuated up and down a lot (she has lost 20lbs in 2 weeks, then gained 20lbs in 2 weeks). Functional Assessment Sleep Pattern Describe any problems with sleeping: Client states she has been sleeping about 4 hours per night. Sensory/Communication Assess Communication Problems Do you have difficulty understanding what people are saying?: No Medical Problems/History Hematologic Conditions Hematologic: Other (See comments) (Von Willebrand type 1, anemia) Gastrointestinal Conditions Gastrointestinal: Other (See comments) (Client says she has had a colonscopy, and is currently getting worked up for possible celiac disease or may have IBS) Pain Assessment Do you have acute or chronic pain?: No Additional History Additional comments:: uterine rupture with 2nd , low iron Surgical History Surgical History Have you had any surgeries? If so, list type and date:: Yes ( x 1) Substance Abuse Substance Abuse Please describe substance abuse in the last 30 days:: Client reports some social alcohol use. Client states she currently occasionally vapes nicotine, but not on a daily basis. Client denies substance use. Client states she drinks 1-2 cups of coffee per day. Mental Status Summary Mental Status Significant Findings/Observations on Appearance and Mood:: Client is alert and oriented x 4. Client is casually groomed with good hygiene. Client is cooperative with assessment. Client makes good eye contact. Client's voice has normal rate and volume. Client has a somewhat restricted affect. Client makes logical associations and has normal processing. Client denies delusions/hallucinations. Client denies current SI, but states she does at times think why am I still here? but states her children are her protective factor. Suicide Assessment Suicidal Ideation Are you currently or have you been suicidal in the past?: Yes Suicidal Intentional Rating Scale (SIRS): Suicidal thoughts (past) Physician Notification Past Psychiatric History MH Treatment Hx Past Psychiatric Medications:: Adderall (recently was took off this), Cymbalta (caused internal bleeding) Age of first mental health symptoms: Client reports a history of ADHD, and PPD after having her kids. Client states her outpatient psych provider has discussed she may possibly have bipolar 2. Describe (age, circumstance, etc) any past hospitalizations: [facility] 05/11-05/18/23 for feeling suicidal, after taking 1/2 a bottle of Zoloft a couple of days before Current providers for mental health treatment (counselor, psychiatrist, case monitor, etc.): YULISA Kenny, at [facility] Fall Risk Assessment Age Age: Less than 60 Mental Status Mental Status: Willing & able to ask for assistance when needed Physical Status Physical Status: No problems Impairments Impairments: None Elimination Elimination: Continent AND independent Gait or Balance Gait or Balance: Walks independently Hx of Falls History of falls in the past 6 months: No known history Medications/Substances Psychotropics:: Antidepressants and Antipsychotics Medications/substances used within the past 24 hours or ordered to administer: 1-2 of the medications/substances listed above Total Score Total Points:: 1 RN Summary of Impressions Impressions Recommendations Impressions: Psychiatric Issues: 1. Bipolar 2 disorder 2. PTSD 3. Generalized anxiety disorder 4. Cluster B traits 5. Primary support and work issues 6. ADHD diagnosed at age 24. Level of Care How do the client's current symptoms and functional deficits support need for this level of care?: Client was referred to IOP by her outpatient psychiatry provider after a recent hospitalization at [facility] 05/11-05/18/23 after an overdose attempt. Client states I feel like I have just gone from one trauma to another for basically my whole life and never had time to deal with it and it's catching up with me. Client denies SI now since being discharged from the hospital, but does states she has some passive why am I here? thoughts but states her kids are a strong protective factor. Client does report daily panic attacks lately that do not always seem to have a trigger. Client also reports low energy and motivation. IOP will promote gains and prevent further decompensation while providing social support and skills training.
[2023-06-13 09:53] VITALS: BP 124/77; PULSE 83
--- NOTE | 2023-06-13 10:10 | BH.SGPN.GN ---
Behaviors/Verbalizations/Mental Status: [] Eye contact is good. Motor activity is appropriate. Appearance is casual. Speech is Appropriate. Mood is depressed. Affect is congruent. Thoughts are linear and logical. No evidence of psychosis. Client Response/Progress/Benefit: [] Pt participated at times. Attentive. Participated in and was engaged during experiential activity. Able to relate activity to group topic of FOF. Engaged during interactive discussion on what failure means to the group in which peers identified and defined failure. Group was able to identify impact of fear of failure on mental health identifying that it can cause isolation, procrastination, self-sabotage, and negative self-talk?. Provided insight that fear of failure can result in avoidance and ultimately maintain one's cycle of depression and anxiety. Attentive during interactive discussion on the role that FOF plays in mental wellness, depression, anxiety, and growth. Benefited from increased awareness of how the role that FOF plays in mental health and decision-making. Will continue in IOP prevent decompensation, maintain safety, increase healthy coping, and to stabilize mood. Narrative Note: []
--- NOTE | 2023-06-13 11:15 | BH.SGPN.GN ---
Behaviors/Verbalizations/Mental Status: []Pt alert and oriented, neatly dressed and groomed. Eye contact good. Motor activity appropriate. Speech within normal limits. Affect congruent, mood euthymic. Thoughts linear, logical, no signs of hallucinations or delusions. Client Response/Progress/Benefit: [] Pt responded well to session, engaged in the experiential activity and attentive throughout group processing. Pt reported fear of failure has kept pt from being authentic, getting hobbies, asking for help, and romantic relationships. Pt completed fear of failure worksheet and was able to identify thoughts and behaviors that reinforce personal fear of failure including highlighting flaws and setbacks, not setting realistic goals, and negative self-talk. Pt participated in group discussion regarding strategies to overcome fear of failure. Identified wanting to work on practicing daily affirmations and meditation. Appeared to benefit from increased knowledge of strategies to combat fear of failure and gaining self-awareness. Pt will continue IOP tx to prevent decompensation, gain healthy coping skills, and improve daily functioning. Narrative Note: []
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
--- NOTE | 2023-06-13 12:39 | BH.DR.ITP ---
Initial Treatment Plan Patient Information Visit Information: ADMISSION DATE: EXPECTED LOS: 4-6 weeks Problems/Symptoms Problem #1:: Mood instability Symptom:: Sadness, hopelessness, worthlessness, guilt, anhedonia, biological disruption of appetite and weight loss, biological disruption of sleep, low energy, decreased concentration, passive thoughts of , recent suicidal ideation and recent self-harm. Problem #2:: Anxiety Symptom:: Worry, rumination, panic attacks, avoidance, nightmares, flashbacks, reexperiencing.
--- NOTE | 2023-06-14 09:00 | BH.SGPN.GN ---
Behaviors/Verbalizations/Mental Status: [] Pt alert and oriented, neatly dressed and groomed. Eye contact good. Motor activity appropriate. Speech within normal limits. Affect congruent, mood anxious. Thoughts linear, logical, no signs of hallucinations or delusions. Reviewed pt?s symptom tracker, no risk for suicidal ideation, plan, or intent 06/14/23 Client Response/Progress/Benefit: []Pt responded well to session, attentive and engaged. Pt reports feeling stressed, hyper, and exhausted this morning. Pt shared her stressor is trying to let go of some toxic family members, but having a hard time with this. Pt stated she has been setting more boundaries and she is choosing to invest more time in her chosen family which has helped. Pt receptive to feedback from gas station service attendant and peers praising pt for her willingness to set boundaries. Pt appeared to benefit from group feedback and support. Pt will continue IOP tx to prevent decompensation, improve daily functioning, and increase ability to challenge distortions. Narrative Note: []
--- NOTE | 2023-06-14 10:05 | BH.SGPN.GN ---
Behaviors/Verbalizations/Mental Status: [] Client alert and oriented, casually dressed and groomed. Eye contact good. Motor activity appropriate. Speech within normal limits. Affect congruent, mood euthymic. Thoughts linear, logical, no signs of hallucinations or delusions. Client Response/Progress/Benefit: [] Client responded well to session, contributing to discussion and engaged during the activity. Attentive during discussion on the quote. Group identified the benefits of change which included: increased confidence, improving mental health, and making progress. Worked with the group to identify barriers to change, which included: uncomfortable emotions such as anxiety and fear, lack of energy, worried about what others will think, and things out of our control. Client also reflected on past negative experiences can keep people from making changes which included other people not wanting them to change. Client participated along with group in activity where they identified and discussed the emotions related to change. Client reported they related to all the emotions associated with change, especially fear. Benefited from increased awareness and understanding of emotions, benefits, and barriers related to change. Will continue IOP tx to continue to combat distortions that reinforce low self-esteem, anxiety, and depression. Narrative Note: []
--- NOTE | 2023-06-14 11:10 | BH.SGPN.GN ---
Behaviors/Verbalizations/Mental Status: [] Client alert and oriented, casually dressed and groomed. Eye contact good. Motor activity appropriate. Speech within normal limits. Affect congruent, mood euthymic. Thoughts linear, logical, no signs of hallucinations or delusions. Client Response/Progress/Benefit: [] Client responded well to session, attentive. Did well to process activity and work with group to relate the strategies used to overcome barriers in the activity to managing change in own life. Client identified a change they would like to make is wanting to feel better about herself. Client identified currently being in preparation stage for this particular change. Client stated their goal is to write 2 goals and positives each day and reflect on them weekly. Appeared to benefit from identifying a small goal to work towards. Client will continue IOP tx to prevent decompensation and increase overall functioning. Narrative Note: []
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
--- NOTE | 2023-06-15 09:45 | BH.MDN ---
Multi-Disciplinary Note Note 45-min Individual: Time Started:: 08:30 Date: 06/15/23 Purpose of session/treatment goals addressed:: The session was to address goals 1 and 2 from MTP. Eye Contact:: Good Motor Activity:: Appropriate Appearance:: Casual Speech:: Appropriate Mood:: Anxious and Dysthymic Affect:: Congruent Thoughts:: Linear, Logical and No evidence of hallucinations/delusions noted Staff Interventions:: thought challenging, CBT techniques, mindfulness skills, rapport building, strengths perspective, goal setting and taught coping skills Client Response:: Client reported so far her first week of IOP has gone very well, stating that she has learned a lot this week. Client stated she has been working on trying to implement the routine and structure discussed in previous individual session. Client stated she has been having to use behavior activation and opposite action to make her self engage in the routine. Client stated she has been doing better with going to bed at a more consistent time at night but is continuing to struggle with waking up throughout the night. Client reported she did start new sleep medication for her nightmares and she is hoping this will help improve sleep quality. Client stated she is feeling a little anxious this morning because last night her parents were asking when she is going to have her kids come back to go live with her. Client stated her parents have been helping take care of her 2 kids the last 4 weeks to give client time to work on herself. Client reported she still does not feel quite ready to have them back full-time and is hoping her mom will be willing to continue helping so that client has time to utilize skills and take care of herself. Client worked with therapist to develop a tentative plan of what that would look like so she can present this to her mom and help to continue to get support from her. Client reported her parents also informed her that come October 2023 her parents will not be renewing her lease for the duplex she is living in. Client stated her parents owned a duplex and they live on the other side and they told her it is time for them to have space away from her. Client stated this does increase her anxiety significantly because she has to figure out where she is going to live but noted she does have some supportive people that have a place she can stay if necessary. Client worked with therapist to also did discuss tentative plan in regards to possibly returning to work towards the end of treatment on a reduced schedule. Client stated she will reflect on this over the weekend and decide what she wants to do. Client stated she is excited about this weekend because she found that her cousins from [place] are visiting this weekend so now she will have to be alone. Client reports she was nervous about what she was going to do over the weekend and now does have some relief. Client reported she will continue to practice coping skills learned throughout the week and encouraged to take time to reflect on the most important things she has learned throughout the week thus far. Client reported she will plan to come 4 times next week and will meet individually 2 times. Risks/Concerns:: Denies active suicidal ideation, plan, or intention. Future oriented. Progress Toward Goals/Plan:: Progress note with client reporting benefit from first week in IOP with learning new skills and putting into practice some of the skills she has learned so far. Client does continue to report negative thought patterns, anxiety, and depressed mood. Client currently off work due to her mental health and her parents are taking care of her 2 kids while she takes time to get better. Client continues to report interrupted sleep throughout the night. Client has implemented a new evening routine which she noted she believes will be helpful as long as she maintains consistency. Client to continue IOP to increase healthy coping, improve daily functioning challenge distortions, and prevent decompensation. Time Stopped:: 09:15
--- NOTE | 2023-06-15 10:10 | BH.SGPN.GN ---
Behaviors/Verbalizations/Mental Status: []Pt alert and oriented, casually dressed and groomed. Eye contact good. Motor activity appropriate. Speech within normal limits. Affect congruent, mood euthymic. Thoughts linear, logical, no signs of hallucinations or delusions. Client Response/Progress/Benefit: []Pt participated in group discussion. Group worked together to identify benefits of healthy relationships which included improves mental health, encouragement, motivation, accountability, validation, connection, someone to share experiences with, and support during challenges. Group identified factors that lead to unhealthy relationships which included trauma, lack of communication, and substance use. Benefited from increased insight and awareness of benefits of healthy relationships and factors that contribute to unhealthy relationships. Will continue in IOP to improve daily functioning, increase distress tolerance, and prevent decompensation.
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
--- NOTE | 2023-06-15 11:10 | BH.SGPN.GN ---
Behaviors/Verbalizations/Mental Status: [] Client alert and oriented, casually dressed and groomed. Eye contact good. Motor activity appropriate. Speech within normal limits. Affect congruent, mood content. Thoughts linear, logical, no signs of hallucinations or delusions. Client Response/Progress/Benefit: [] Client responded well to session, engaged and taking notes throughout. Worked with group to connect components of the experiential activity with characteristics of healthy and unhealthy relationships. Attentive during psychoeducation about characteristics of healthy, unhealthy, and abusive relationships. Client stated that within the relationship with her parents does well with boundaries. Client reported she would like to continue to improve with communication in healthier ways as well as self-advocacy. Appeared to benefit from identifying current healthy relationship attributes and an area client wants to work on to build healthier relationships. Client to continue IOP to increase healthy coping skills, stabilize mood, and prevent decompensation. Narrative Note: []
== END 2023-06-17 23:59 ==
LOC: BHIOP 08:00
PROVIDERS: PCP Student in an Organized Health Care Education/Training Program; Referring Provider Psychiatry & Neurology Psychiatry; Visit Provider Psychiatry & Neurology Psychiatry
DX: F31.81 Bipolar II disorder (principal); F43.10 Post-traumatic stress disorder, unspecified; F41.1 Generalized anxiety disorder; F90.9 Attention-deficit hyperactivity disorder, unspecified type; Z79.899 Other long term (current) drug therapy
CPT/HCPCS: 90792; H2012; H2020; S9480; T1002; 90832; 90834

== ENCOUNTER 2023-06-13 14:12 | Emergency (ER) | payer MEDICAID, SELFPAY ==
[2023-06-13 14:13] VITALS: BP 127/79; PULSE 96; RESP 14; TEMP 36.3; O2SAT 100; BMI 33.5
--- NOTE | 2023-06-13 14:32 | US_ITS ---
INDICATION: bleeding EXAMINATION: Ultrasound US Transvaginal Non-OB TECHNIQUE: Transvaginal (for optimal evaluation of the adnexa) pelvic ultrasound was performed. Grayscale, spectral waveform, and color flow Doppler evaluation of the adnexa. COMPARISON: FINDINGS: UTERUS: Anteverted. The uterus measures 8.8 x 5.3 x 3.9 cm. There is no uterine mass. The endometrial stripe measures 2.9 mm in AP diameter which is within normal limits. A 1 mm echogenic focus noted within the endometrium possibly a focal calcification. RIGHT OVARY: 3.2 x 1.8 x 1.8 cm. Non-enlarged, normal echogenicity. There is normal arterial inflow and venous outflow present in the right ovary. LEFT OVARY: 4.1 x 2 x 1.7 cm. Non-enlarged, normal echogenicity. There is normal arterial inflow and venous outflow present in the left ovary. FREE FLUID: None. US/Transvaginal Non- IMPRESSION: No acute pathology is appreciated. Electronically Signed: Caleb Carver DO at 19:51 EDT Reading Location ID and State: [facility] / [place] Tel [phone], Service support ,
[2023-06-13 14:39] LABS: Absolute Lymphocyte Count 1.75 X10^3/uL (0.83-4.51); Absolute Neutrophil Count 6.1 X10^3/uL (2.0-7.7); Basophil# 0.05 X10^3/uL; Basophil% 0.6 % (0-1); Eosinophil# 0.25 X10^3/uL; Eosinophils% 2.8 % (0-5); Hemoglobin 12.8 g/dL (12.0-15.0); Lymphocyte # 1.75 X10^3/ul (0.83-4.51); Lymphocyte % 19.8 % (19-41); Mean Corp Hgb Conc 32.8 g/dL (32-36); Mean Corpuscular Hgb 31.9 pg (27.0-32.0); Mean Corpuscular Volume 97.3 fL (81-99); Mean Platelet Vol. 9.9 fl (6.2-12.0); Monocyte# 0.65 X10^3/uL; Monocyte% 7.4 % (0-10); NRBC Flagged by Analyzer 0 % (0-5); Neutrophil # 6.09 X10^3/uL (2.7-7.7); Neutrophil % 69.1 % (47-70); Platelet Count 367 K/mm3 (150-450); RBC Distribution Width CV 14.2 % (11.6-14.6); RBC Distribution Width SD 50.8 fl (35.1-43.9); Red Blood Count 4.01 M/mm3 (4.2-5.4); White Blood Count 8.8 K/mm3 (4.4-11.0)
[2023-06-13 15:05] LABS: hCG Titer Quant., Serum < 1 mIU/mL (1-3)
[2023-06-13 16:12] VITALS: BP 128/70; PULSE 86; RESP 16; O2SAT 98
--- NOTE | 2023-06-13 16:59 | EDS_ITS ---
HPI HPI - Female History of Present Illness Chief Complaint: Vag Bld, Preg Informant: patient Narrative Narrative: 28-year-old female presenting to the emergency room with concerns for miscarriage. Patient states she had a positive home test last week. This would make her Ab2. She states that yesterday she began to have abdominal cramping and bleeding with clots. She has a history of von Willebrand's disease. She notes that the cramping and the bleeding continues today. She sees [facility]PER[facility]. She has not seen them yet for this . Patient denies any fevers. She denies any other vaginal discharge other than the bleeding. No urinary symptoms. Last menstrual period was at the end of April. PFSH PFSH Medical History ADHD Anemia Bipolar 2 disorder Chlamydia infection affecting Generalized anxiety disorder Knee pain MRSA infection depression PTSD (post-traumatic stress disorder) Von Willebrand disease Home Medications desmopressin 150 mcg/spray (0.1 mL) nasal spray 150 mcg intranasal Q24H PRN von willebrand type 1 10/25/20 [History Last Taken 10/18/15] multivitamin with iron 1 tab PO DAILY 10/25/20 [History Last Taken 10/24/20] acetaminophen 500 mg tablet 1,000 mg (2 x 500 mg) PO Q6H PRN pain #0 tabs 10/28/20 [Rx Last Taken Unknown] aripiprazole 5 mg tablet (Abilify) 5 mg PO DAILY 06/13/23 [History Last Taken Unknown] sertraline 100 mg tablet (Zoloft) 150 mg (1.5 x 100 mg) PO DAILY 30 days #45 TABLETS 06/13/23 [Rx Last Taken Unknown] Allergy/AdvReac Type Severity Reaction Status Date / Time aspirin Allergy Unknown Verified 06/13/23 14:14 NSAIDS (Non-Steroidal Allergy Other Verified 06/13/23 14:14 Anti-Inflamma Family History no significant family his Social History household members: family Smoking Status: Never smoker ROS ROS ED Constitutional Constitutional ED: Denies chills, fever(s) or weight loss Eyes Eyes: Denies change in vision or diplopia ENT ENT ED: Denies ear pain, rhinorrhea or sore throat Cardiovascular Cardiovascular: Denies chest pain, orthopnea, palpitations or racing heartbeat Respiratory/Chest Respiratory/Chest: Denies cough, dyspnea or orthopnea Gastrointestinal Gastrointestinal: Denies abdominal pain, diarrhea, nausea or vomiting Genitourinary Genitourinary ED: Reports other Details: Pelvic cramping abnormal bleeding ; Denies dysuria, hematuria or urinary frequency Musculoskeletal Musculoskeletal: Denies arthralgias or myalgias Integumentary Denies abscess or rash Neurologic Neurologic: Denies headache(s) or weakness Psychiatric Psychiatric: Denies anxiety, depression, suicidal ideation or suicidal thoughts Endocrine Endocrinology: Denies polydipsia, polyphagia or polyuria Allergic/Immunologic Allergic/Immunologic ED: Denies mouth swelling, tongue swelling or urticaria EXAM Physical Exam Const Vital Signs: 06/13/23 14:13 06/13/23 16:12 Temperature 97.4 F L Temperature Source Temporal Pulse Rate 96 86 Respiratory Rate 14 16 Blood Pressure 127/79 H 128/70 H Blood Pressure Mean 95 89 Pulse Ox 100 98 Oxygen Delivery Method Room Air Room Air Positive well nourished and well developed General Appearance ED: well developed HEENT Reports normocephalic, head/scalp atraumatic and moist mucous membranes Eyes PERRL and EOMs intact bilaterally Neck no lymphadenopathy, supple and no JVD Resp normal respiratory effort and clear to auscultation bilaterally Cardio regular rate, regular rhythm and no murmurs GI normal to inspection, nondistended, normoactive bowel sounds and non-tender Palpation: soft Back/Spine no CVA tenderness and normal ROM Extremity normal to inspection General Extremety ED: Negative for edema General Extremity: Negative for edema Neuro oriented x3 and CN's II-XII intact bilaterally Sensorium / Orientation: alert Motor Exam: strength 5/5 throughout Psych mental status grossly normal Mood & Affect: Negative for depressed or tearful Skin no rashes or lesions noted and no wounds MDM MDM MDM Narrative Medical decision making narrative: Differential diagnosis includes but not limited to ectopic , incomplete complete miscarriage, I did a formal, incomplete molar, endometritis, retained products. Hemoglobin 12.8 with a white count of 8.8 normal differential. Platelet count of 367. Quantitative hCG is less than 1. Urinalysis and pelvic ultrasound is pending. At this point the care of the patient will be checked out to the oncoming physician for check of ultrasound and final disposition. History & Record Review Discussion w/independent historian: Patient Lab Data Attestation: I reviewed the patient's lab results. Labs: Laboratory Results - last 24 hr 06/13/23 14:24 WBC 8.8 RBC 4.01 L Hgb 12.8 Hct 39.0 MCV 97.3 MCH 31.9 MCHC 32.8 RDW Std Deviation 50.8 H RDW Coeff of Neyda 14.2 Plt Count 367 MPV 9.9 Immature Gran % (Auto) 0.300 Neut % (Auto) 69.1 Lymph % (Auto) 19.8 Saline % (Auto) 7.4 Eos % (Auto) 2.8 Baso % (Auto) 0.6 Absolute Neuts (auto) 6.1 Absolute Lymphs (auto) 1.75 Nucleated RBC % 0 HCG, Quant < 1 Discharge Plan Triage Chief Complaint: Vag Bld, Preg ED Provider: Emanuel Carrillo Dx/Rx/DC Orders Clinical Impression: Von Willebrand disease, type I, Miscarriage Prescriptions: No Action desmopressin 150 mcg/spray (0.1 mL) [place],Non-Aerosol 150 mcg INTRANASAL Q24H PRN (Reason: von willebrand type 1) multivitamin with iron 1 tab PO DAILY acetaminophen 500 mg Tablet 1,000 mg PO Q6H PRN (Reason: pain) Qty: 0 0RF sertraline [Zoloft] 100 mg tablet 150 mg PO DAILY 30 Days Qty: 45 0RF Rx Instructions: Please refill patient's Rx now as dose has been increased for depression and anxiety. She does not have access to old meds. aripiprazole [Abilify] 5 mg tablet 5 mg PO DAILY Primary Care Provider: Georgi Carrion Referrals: Georgi Carrion, DO [Primary Care Provider] -
[2023-06-13 17:44] LABS: Bacteria 0 SEEN /hpf (None Seen); Mucous, Urine 0 SEEN /hpf (<or=2+)
[2023-06-13 17:58] LABS: Color, Urine Yellow (Yellow); Glucose, Dipstick Normal (Normal); Ketone-Dipstick Negative (Negative); Leukocyte Esterase-Dipstick 25 /ul (Negative); Nitrite-Dipstick Negative (Negative); Occult Blood-Urine 250 /ul (Negative); Protein-Dipstick 30 mg/dl (Negative); Urine Bilirubin Dipstick Negative (Negative); Urine Clarity Clear (Clear); Urine Urobilinogen 4 mg/dl (Normal); Urine pH 6.5 (5.0 - 8.0)
[2023-06-13 18:00] VITALS: BP 123/78; PULSE 65; RESP 18; O2SAT 99
[2023-06-13 18:05] LABS: Red Blood Cells-Urine 0-5 SEEN /hpf (0-5); Squamous Epithelial Cells - UA 0-5 SEEN /hpf (5-10); White Blood Cells 0-5 SEEN /hpf (0-5)
--- NOTE | 2023-06-13 19:55 | ED.VIS.FEGU ---
HPI HPI - Female History of Present Illness Chief Complaint: Vag Bld, Preg PFSH PFSH Medical History ADHD Anemia Bipolar 2 disorder Chlamydia infection affecting Generalized anxiety disorder Knee pain MRSA infection depression PTSD (post-traumatic stress disorder) Von Willebrand disease Home Medications desmopressin 150 mcg/spray (0.1 mL) nasal spray 150 mcg intranasal Q24H PRN von willebrand type 1 10/25/20 [History Last Taken 10/18/15] multivitamin with iron 1 tab PO DAILY 10/25/20 [History Last Taken 10/24/20] acetaminophen 500 mg tablet 1,000 mg (2 x 500 mg) PO Q6H PRN pain #0 tabs 10/28/20 [Rx Last Taken Unknown] aripiprazole 5 mg tablet (Abilify) 5 mg PO DAILY 06/13/23 [History Last Taken Unknown] sertraline 100 mg tablet (Zoloft) 150 mg (1.5 x 100 mg) PO DAILY 30 days #45 TABLETS 06/13/23 [Rx Last Taken Unknown] Allergy/AdvReac Type Severity Reaction Status Date / Time aspirin Allergy Unknown Verified 06/13/23 14:14 NSAIDS (Non-Steroidal Allergy Other Verified 06/13/23 14:14 Anti-Inflamma Family History no significant family his Social History household members: family Smoking Status: Never smoker EXAM Physical Exam Const Vital Signs: 06/13/23 14:13 06/13/23 16:12 06/13/23 18:00 Temperature 97.4 F L Temperature Source Temporal Pulse Rate 96 86 65 Respiratory Rate 14 16 18 Blood Pressure 127/79 H 128/70 H 123/78 H Blood Pressure Mean 95 89 93 Pulse Ox 100 98 99 Oxygen Delivery Method Room Air Room Air Room Air [facility] Lab Data Labs: Laboratory Results - last 24 hr 06/13/23 06/13/23 14:24 17:35 WBC 8.8 RBC 4.01 L Hgb 12.8 Hct 39.0 MCV 97.3 MCH 31.9 MCHC 32.8 RDW Std Deviation 50.8 H RDW Coeff of Neyda 14.2 Plt Count 367 MPV 9.9 Immature Gran % (Auto) 0.300 Neut % (Auto) 69.1 Lymph % (Auto) 19.8 Shannon % (Auto) 7.4 Eos % (Auto) 2.8 Baso % (Auto) 0.6 Absolute Neuts (auto) 6.1 Absolute Lymphs (auto) 1.75 Nucleated RBC % 0 HCG, Quant < 1 Urine Color Yellow Urine Clarity Clear Urine pH 6.5 Ur Specific [place] 1.020 Urine Protein 30 H Urine Glucose (UA) Normal Urine Ketones Negative Urine Occult Blood 250 H Urine Nitrite Negative Urine Bilirubin Negative Urine Urobilinogen 4 H Ur Leukocyte Esterase 25 H Urine RBC 0-5 SEEN Urine WBC 0-5 SEEN Ur Squamous Epith Cells 0-5 SEEN Urine Bacteria 0 SEEN Urine Mucus 0 SEEN Radiography Diagnostic Testing: Clinical Impression(s) from Imaging Studies Transvaginal US 06/13/23 14:32 IMPRESSION: No acute pathology is appreciated. Electronically Signed: Caleb Carver DO at 19:51 EDT Reading Location ID and State: [facility] / [place] Tel [phone], Service support , Treatment and Re-Evaluation Narrative: Patient signed out to me pending ultrasound report and urinalysis. Ultrasound reveals no acute abnormalities. Urinalysis shows 0 bacteria with 0-5 epithelial cells and 0-5 white cells. Test results discussed with the patient. I advised her that she either miscarried very early and her hormone level is already back to less than 1, or she may have had a false positive test at home last week. She is reassured with her test findings at this time and will follow-up with her [employer] at [facility]. Return instructions are given. Discharge Plan Triage Chief Complaint: Vag Bld, Preg ED Provider: Emanuel Carrillo Dx/Rx/DC Orders Clinical Impression: Von Willebrand disease, type I, Miscarriage Instructions: ED Miscarriage Spontaneous Prescriptions: No Action desmopressin 150 mcg/spray (0.1 mL) [place],Non-Aerosol 150 mcg INTRANASAL Q24H PRN (Reason: von willebrand type 1) multivitamin with iron 1 tab PO DAILY acetaminophen 500 mg Tablet 1,000 mg PO Q6H PRN (Reason: pain) Qty: 0 0RF sertraline [Zoloft] 100 mg tablet 150 mg PO DAILY 30 Days Qty: 45 0RF Rx Instructions: Please refill patient's Rx now as dose has been increased for depression and anxiety. She does not have access to old meds. aripiprazole [Abilify] 5 mg tablet 5 mg PO DAILY Primary Care Provider: Georgi Carrion Referrals: Georgi Carrion DO [Primary Care Provider] - Joy Rene MD [Med Staff - Active Staff] - 5-7 Days Disposition Disposition: Home, Self Care
[2023-06-13 19:59] VITALS: BP 140/79; PULSE 80; RESP 16; TEMP 37.1; O2SAT 100
== END 2023-06-13 19:58 | disposition home or self-care (01) ==
PROVIDERS: Emergency Provider Emergency Medicine; PCP Student in an Organized Health Care Education/Training Program; Visit Provider Emergency Medicine
DX: O03.9 Complete or unspecified spontaneous abortion without complication (principal); D68.01 Von Willebrand disease, type 1; Z79.899 Other long term (current) drug therapy
CPT/HCPCS: 76830; 81001; 84702; 85025; 99283; A4216

== ENCOUNTER 2023-06-18 07:15 | Outpatient (RCR) | payer MEDICAID, SELFPAY ==
[2023-06-18 00:32] VITALS: BP 124/77; PULSE 83
--- NOTE | 2023-06-19 09:10 | BH.SGPN.GN ---
Behaviors/Verbalizations/Mental Status: [] Eye contact is good. Motor activity is appropriate. Appearance is casual. Speech is Appropriate. Mood is depressed. Affect is congruent. Thoughts are linear and logical. No evidence of psychosis. Reviewed daily check in sheet and no reports of suicidal ideations or intent. Client Response/Progress/Benefit: [] Pt participated at times during the group discussion. Attentive. Daily symptom tracker notes 3/5 for depression and 2/5 for anxiety/irritability. Struggles to identify mental health wins and healthy habits. States I'm having a rough go right now. It took everything I had to just show up today. Identified several external stressors which have impacted her overall mental health. The two most distressing are related to her (estranged) contacting her and conflict with her parents. Aury was a shit show. Emotion is keith and she is feeling overwhelmed. I'm trying not to avoid, isolate, or break my routine. Shared that importance of her routine for her mental health. Group was supportive and pointed out mental health wins and awareness that she was not aware of. Also challenged and reframed negative thoughts about herself. Regression noted. Will continue in IOP to maintain safety, prevent decompensation/re-amission, and to improve functioning. Narrative Note: []
--- NOTE | 2023-06-19 10:15 | BH.SGPN.GN ---
Behaviors/Verbalizations/Mental Status: []Pt alert and oriented, neatly dressed and groomed. Eye contact good. Motor activity appropriate. Speech within normal limits. Affect congruent, mood euthymic. Thoughts linear, logical, no signs of hallucinations or delusions. Client Response/Progress/Benefit: [] Pt was an active participant, AEB taking notes and providing input in group discussions and activities. Attentive during psychoeducation. Pt engaged during interactive discussion in which the group defined self-care and discussed its benefits. Group discussed benefits of self-care which included; better self-esteem, reduce stress, and boost mood. Pt participated in small group where they worked to identify common self-care ?myths.? Pt?s group worked on self-care is selfish, not everyone deserves it, and it is self-indulgent. Pt shared that lack of self-care led to pt finally getting mental health help. Benefited from increased awareness of self-care, its benefits, and the consequences of not utilizing self-care strategies. Will continue IOP tx to improve self-compassion, increase distress tolerance, and reduce negative thinking patterns. Narrative Note: []
--- NOTE | 2023-06-19 11:15 | BH.SGPN.GN ---
Behaviors/Verbalizations/Mental Status: []Pt alert and oriented, casually dressed and groomed. Eye contact fair. Motor activity appropriate. Speech within normal limits. Affect congruent, mood euthymic. Thoughts linear, logical, no signs of hallucinations or delusions. Client Response/Progress/Benefit: [] Pt engaged participant AEB completing self-assessment worksheet and providing input throughout discussion. Pt completed worksheet identifying current self-care practices and what self-care activities Pt wants to start using. Pt selected social self-care to begin practicing more consistently. Pt plans to do this by researching places in her area she could go to meet new connections. Appeared to benefit from completing the self-care evaluation and gaining insights into current self-care practices, as well as identifying areas in which pt would like to improve upon. Pt will continue IOP tx to increase consistent use of healthy coping skills, challenge distorted thoughts, and prevent decompensation.
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
--- NOTE | 2023-06-25 09:00 | BH.SGPN.GN ---
Behaviors/Verbalizations/Mental Status: [Patient was alert and oriented, appropriately dressed and groomed. Eye contact was good, motor activity normal, speech within normal limits. Affect congruent, mood content. Thoughts linear, logical, no signs of hallucinations or delusions. Reviewed Patients symptom tracker and the patient reports low to moderate in depressed mood and anxiety/panic attacks. Patient does not report symptoms in agitation/irritability/anger, self-harm urges, or thoughts/risk of suicide] Client Response/Progress/Benefit: [Patient was engaged and open to the discussion. Patient reported her mood to be ?neutral?. Patients first win is that she went to the gym this morning at 7am to get her day started and to [place]. Patient second win is that she had a good weekend overall and practiced being more present in the moment. Patients stressor is that she was served with divorce paperwork last week with her asking for 50/50 custody although he hasn?t seen their kids in 3 years. Patient was interactive and respectful with other group members about their mental wins and stressors. Patient benefited from the discussion by listening to feedback and giving input on her peer?s stressors and mental health wins. Patient will continue with IOP treatment to help develop healthy skills, promote mood stability, and improve distress tolerance. ] Narrative Note: []
--- NOTE | 2023-06-25 10:15 | BH.SGPN.GN ---
Behaviors/Verbalizations/Mental Status: []Patient was alert and oriented, casually dressed and groomed. Eye contact was good, motor activity normal, speech within normal limits. Affect congruent, mood anxious and dysthymic. Thoughts linear, logical, no signs of hallucinations or delusion Client Response/Progress/Benefit: []Pt participated in the group discussions AEB providing input and taking notes. Attentive during psychoeducation Goal Setting. Participated during the discussion on common barriers which the group identified as: lack of motivation, making excuses, not feeling good enough, and lack of support. Group also identified benefits sense of purpose, improved self-confidence, more motivation for other goals, and improved mental health. Pt reports struggling specifically with barriers of not wanting to ask for help and not knowing where to start with her goal. Benefited from increased awareness of mental health benefits of goals as well as psychoeducation on SMART goal criteria. Will continue in IOP to prevent decompensation, improve daily functioning, and increase ability to manage emotions. Narrative Note: []
--- NOTE | 2023-06-25 11:10 | BH.SGPN.GN ---
Behaviors/Verbalizations/Mental Status: []Pt alert and oriented, casually dressed and groomed. Eye contact good. Motor activity appropriate. Speech within normal limits. Affect congruent, mood dysthymic. Thoughts linear, logical, no signs of hallucinations or delusions. Client Response/Progress/Benefit: [] Pt was engaged during discussion and willing to complete the worksheet challenging them to develop a personal SMART goal. Pt chose the goal of consistently getting up at 6:30am 5 times a week to workout at the gym in the mornings. Pt stated this will help her feel better about herself and feel healthier. Pt identified lack of sleep, low motivation, and less time to get ready as potential barriers. Identified solutions such as following bedtime routine, reminding self of the benefits, and being flexible with expectations. Pt receptive to identifying solutions for these barriers and willing to begin working on this goal. Benefited from this group by developing a short-term SMART goal related to mental health. Will continue IOP tx to increase consistency of using skills, challenge distortions, and prevent decompensation.
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
--- NOTE | 2023-06-26 09:05 | BH.SGPN.GN ---
Behaviors/Verbalizations/Mental Status: [] Eye contact is good. Motor activity is appropriate. Appearance is casual. Speech is Appropriate. Mood is euthymic. Affect is full. Thoughts are linear and logical. No evidence of psychosis. Reviewed daily check in sheet and no reports of suicidal ideations or intent. Client Response/Progress/Benefit: [] Pt was an active participant in group discussion. Attentive. Daily symptom tracker notes 25 for anxiety and /5 for depression. Able to identify mental health wins and healthy habits. I feel rested stating that she slept in till 7am this AM. Shared that she has a goal to change her bedtime routine which has helped her transition to evening and eventually sleep. Elaborated on her bedtime routine and its mental health benefits. Emotion for today is content. Reports that she continues to have random panic attacks and while they continue to impact her functioning and progress she shared that using skills has helped to lessen the impact. Progress noted. Benefited from group support, encouragement, and feedback. Will continue in IOP to maintain safety, prevent decompensation/re-admission to psych unit, and to improve functioning to return to work. Narrative Note: []
--- NOTE | 2023-06-26 10:10 | BH.SGPN.GN ---
Behaviors/Verbalizations/Mental Status: []Eye contact is good. Motor activity is appropriate. Appearance is casual. Speech is Appropriate. Mood is euthymic. Affect is congruent. Thoughts are linear and logical. No evidence of psychosis. Client Response/Progress/Benefit: [] Pt was an engaged participant AEB listening attentively to others, taking notes, and providing feedback in small group discussions. Attentive during psychoeducation AEB by note taking and providing some input. Pt worked along with peers in small groups to define inappropriate guilt and appropriate guilt. Interactive discussion on examples of both inappropriate and appropriate guilt. Pt able to connect impact inappropriate guilt can have on MH. Pt gave an example of inappropriate guilt and how this leads to people pleasing for pt. Appeared to benefit from increased awareness of guilt and the differences between appropriate and inappropriate guilt. Will continue in IOP to promote mood stability, reduce anxious thought patterns, and increase self-confidence. Narrative Note: []
--- NOTE | 2023-06-26 11:15 | BH.SGPN.GN ---
Behaviors/Verbalizations/Mental Status: []Pt alert and oriented, casually dressed and groomed. Eye contact good. Motor activity appropriate. Speech within normal limits. Affect congruent, mood content. Thoughts linear, logical, no signs of hallucinations or delusions. Client Response/Progress/Benefit: [] Pt engaged participant AEB listening attentively to others and providing input throughout group. Pt worked within their small group to identify strategies to manage inappropriate guilt. Identified a personal example of inappropriate guilt as blaming herself for her parents disagreeing with her life choices. Insight this cues a fear of disappointing others and rejection. Pt wants to work on combatting inappropriate guilt by challenging distortions, maintaining her boundaries, and focusing on self-compassion. Pt seemed to benefit from learning about strategies to manage appropriate and inappropriate guilt. Pt will continue IOP tx to promote mood stability, reinforce healthy boundaries, and prevent decompensation. Narrative Note: []
--- NOTE | 2023-06-28 09:05 | BH.SGPN.GN ---
Behaviors/Verbalizations/Mental Status: [] Eye contact is good. Motor activity is appropriate. Appearance is casual. Speech is Appropriate. Mood is depressed. Affect is congruent. Thoughts are linear and logical. No evidence of psychosis. Reviewed daily check in sheet and no reports of suicidal ideations or intent. Client Response/Progress/Benefit: [] Pt was an active participant in group discussion. Attentive. Daily symptom tracker notes 2/5 for depression and anxiety. Emotion for today is keith. Reports significant psychosocial stressors which are impacting her mental health. Parent's are ending pt's lease in October and she in the early legal phases of divorce. Elaborated on interpersonal relationship stressors as well. Feeling overwhelmed I'm feeling all of that. Limited progress noted. Benefited from group support, encouragement, and feedback. Will continue in IOP to maintain safety, prevent decompensation/re-admission to psych unit, and to improve functioning to return to work. Narrative Note: []
--- NOTE | 2023-06-28 15:00 | BH.SGPN.GN ---
Behaviors/Verbalizations/Mental Status: [] Eye contact is good. Motor activity is appropriate. Appearance is casual. Speech is Appropriate. Mood is content. Affect is congruent. Thoughts are linear and logical. No evidence of psychosis. Client Response/Progress/Benefit: [] Pt was an active participant in group discussions and activity. Engaged with peers in activity and identifying healthy ways to approach each conflict scenario. Group discussed various conflict resolution skills that can be useful in addressing conflict outside of IOP. Benefited from practicing and learning conflict resolution skills during group activity. Able to identify areas pt wants to work on to improve how pt manages conflict both internally and externally. Expressed wanting to work on not backing off when she actually wants to be more assertive within a conflict scenario. Will continue in IOP to stabilize mood, improve functioning to be able to return to work, and prevent decompensation. Narrative Note: []
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
--- NOTE | 2023-06-29 10:10 | BH.SGPN.GN ---
Behaviors/Verbalizations/Mental Status: [] Eye contact is good. Motor activity is appropriate. Appearance is casual. Speech is Appropriate. Mood is euthymic. Affect is full. Thoughts are linear and logical. No evidence of psychosis Client Response/Progress/Benefit: [] Pt responded well to session AEB contributing to small group discussion, taking notes, and listening attentively to others. Group defined anger and discussed the benefits of managed anger and anger as a secondary emotion. Pt shared perspective on personal benefits of anger as advocating for self. Pt completed worksheet on anger triggers and personal warning signs of anger. Pt identified a common trigger to the group. Appeared to benefit from increased knowledge of the anger cycle as well as personal triggers. Will continue IOP to prevent decompensation/re-admission to psych unit, increase healthy coping, and to improve functioning to return to work. . Narrative Note: []
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
--- NOTE | 2023-07-03 09:05 | BH.SGPN.GN ---
Behaviors/Verbalizations/Mental Status: [] Eye contact is good. Motor activity is appropriate. Appearance is casual. Speech is Appropriate. Mood is euthymic. Affect is full. Thoughts are linear and logical. No evidence of psychosis. Reviewed daily check in sheet and no reports of suicidal ideations or intent. Client Response/Progress/Benefit: [] Pt was an active participant in group discussion. Attentive. Able to identify mental health wins and healthy habits. She followed through with a goals to have a date by myself. She explained the rationale behhind this and how it was beneficial to her mental health. Has been having trouble being alone in her house due to trauma triggers. Has also struggles with self-care at home feeling as if she needs to be accomplishing tasks. Gave herself permission to watch a movie and order some food. I just allowed myself to be relaxed. Overall it was beneficial. She continues to reports psychosocial stressors (divorce, being off work, mental health, housing, and medical issues) which cause her to ruminate. Progress noted as she is practicing new skills. Benefited from group support, encouragement, and feedback. Will continue in IOP to maintain safety, increase healthy coping, and improve functioning to return to work. Narrative Note: []
--- NOTE | 2023-07-03 10:15 | BH.SGPN.GN ---
Behaviors/Verbalizations/Mental Status: [] Eye contact is good. Motor activity is appropriate. Appearance is casual. Speech is Appropriate. Mood is anxious. Affect is congruent. Thoughts are linear and logical. No evidence of psychosis. Client Response/Progress/Benefit: []Pt engaged participant AEB listening to others, engaging in activity, and providing feedback at times. Attentive during psychoeducation and provided insight into obstacles that impede mental wellness. Pt shared with group current mental health reality and desired mental health reality. Stated she would like to get to a place where she feels more confident in herself and build healthy supports. Identified barriers to desired reality include: ruminating, insecurities, poor boundaries, toxic people, and low self-confidence. Benefited from taking look at current mental health state and obstacles for progress. Pt to continue IOP tx to improve mood stability, reduce over reliance on others, and prevent decompensation.
--- NOTE | 2023-07-03 11:15 | BH.SGPN.GN ---
Behaviors/Verbalizations/Mental Status: []Pt alert and oriented, casually dressed and groomed. Eye contact good. Motor activity appropriate. Speech within normal limits. Affect congruent, mood content. Thoughts linear, logical, no signs of hallucinations or delusions. Client Response/Progress/Benefit: []Pt participated in group discussion and activity. Worked with group to identify strategies to help overcome barriers and obstacles to desired reality. Group developed strategies for the common barriers of avoidance, poor boundaries, unrealistic expectations, low self-confidence, and isolation. Identified personal barriers to desired reality and choose one obstacle to work on this week which was poor boundaries. Pt plans to do this by reminding herself No is a complete sentence? to challenge urges to justify her boundaries. Pt seemed to benefit from group by identifying obstacles and solutions to desired reality. Will continue IOP tx to prevent decompensation, improve behavior activation skill application, and improve daily functioning. ? Narrative Note: []
--- NOTE | 2023-07-04 09:00 | BH.SGPN.GN ---
Behaviors/Verbalizations/Mental Status: [Patient was alert and oriented, appropriately dressed and groomed. Eye contact was good, motor activity normal, speech within normal limits. Affect congruent, mood content. Thoughts linear, logical, no signs of hallucinations or delusions. Reviewed Patients symptom tracker and the patient reports low/moderate in depressed mood, anxiety/panic attacks, and low in agitation/irritability/anger. Patient does not report symptoms of self-harm urges/behaviors, or thoughts/risk of suicide. ] Client Response/Progress/Benefit: [Patient was engaged and open to the discussion. Patient reported his mood to be ?content?. Patients first win is that she spent 4 hours alone back at her house so she can get use to being alone and coping with the negative emotions that go along with it. Patients second win is that afterwards, instead of going back to her friend?s house and going to bed early, she went to another friend?s house and sat near a bonfire. Patients stressor is that she has been thought challenging herself about her suicide attempt and has been more open about talking about it. Patient was interactive and respectful with other group members about their mental wins and stressors. Patient benefited from the discussion by listening to feedback and giving input on her peer?s stressors and mental health wins. Patient will continue with IOP treatment to help develop healthy skills, promote mood stability, and improve distress tolerance. ] Narrative Note: []
--- NOTE | 2023-07-04 11:15 | BH.SGPN.GN ---
Behaviors/Verbalizations/Mental Status: []Pt alert and oriented, casually dressed. Eye contact good. Motor activity appropriate. Speech within normal limits. Affect congruent, mood agitated. Thoughts linear, logical, no signs of hallucinations or delusions. Client Response/Progress/Benefit: [] Pt responded well to session AEB Pt listening attentively to others and providing input during group discussion on the pay offs and costs of the different communication styles. Pt able to connect how current communication style impacts mental health. Connected with peers? comments about importance of using assertive communication. Pt did well being assertive in the group activity and practiced using assertive communication in the role playing scenarios. Pt helped their group develop assertive communication responses which pt reported helped her think of how to phrase things more directly. Pt seemed to benefit from increasing awareness of healthy strategies to improve communication. Will continue IOP tx to promote use of healthy coping skills, reduce negative thinking patterns, and improve daily functioning. ?? Narrative Note: []
--- NOTE | 2023-07-04 13:52 | BH.TPR ---
Treatment Plan Review Demographics Date of Admission:: 06/11/23 Date of Treatment Plan Review:: 07/04/23 Admitting Diagnoses:: 1. Bipolar 2 disorder F31.81 2. PTSD 3. Generalized anxiety disorder 4. Cluster B traits Current Diagnoses:: 1. Bipolar 2 disorder F31.81 2. PTSD 3. Generalized anxiety disorder 4. Cluster B traits Patient Status Patient's Response to Treatment:: Client overall consistently attends IOP sessions and often engages in group therapy sessions. Client does struggle at times with applying skills outside treatment environment. Client does engage in individual therapy sessions. Status of Current Problems and Symptoms: Ongoing problems. Client showing progress with being able to manage anxiety in order to stay the night at her apartment. However client continues to report not feeling like herself and feeling somewhat numb. Client expresses concerns anxiety about returning to work especially had a full-time schedule. 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 Client does have psychosocial stressors of needing to find a new place to live by October, getting divorce papers, being trauma triggered with the divorce papers from her , and preparing to return to work. Endorses down mood, increased anxiety, some avoidance of anxiety provoking situations, and not feeling ready to return to work. Progress Problem #1: Problem Name:: Depression Status of Goals:: obj 1 - met, ongoing work encouraged. Client is able to identify healthy coping skills like opposite action, engaging in hobbies, and getting back into doing activities she used to enjoy. Client does struggle with consistently applying these skills. Obj 2 - not met. Client is reporting improved ability to identify her negative/distorted thought patterns, but is still working on being able to challenge the thoughts independently. Team Recommendations:: Team recommends continued work on current goals and objectives with focus on increasing consistent use of skills outside treatment environment. Problem #2: Problem Name:: Anxiety Status of Goals:: obj 1 - not met. Client is able to identify healthy calming skills, but reports challenges with using skills on a consistent basis. On DSM 5 at review client continues to report moderate anxious symptoms. obj 2 - not met. Client has shown recent improvement with this objective AEB recently spending time alone at her apartment to read and have breakfast. Client still avoids being alone as much as she can due to anxious thoughts and not wanting to ruminate. Team Recommendations:: Team recommends continued work on current goals and objectives with focus on increasing consistent use of skills outside treatment environment.
--- NOTE | 2023-07-04 15:32 | BH.MDN ---
Multi-Disciplinary Note Note 45-min Individual: Time Started:: 10:15 Date: 07/04/23 Purpose of session/treatment goals addressed:: Purpose of session was to address goals 1 and 2 from MTP. Additional goal is to discuss return to work next week. Eye Contact:: Good Motor Activity:: Appropriate Appearance:: Casual Speech:: Appropriate Mood:: Anxious Affect:: Constricted Thoughts:: Linear, Logical and No evidence of hallucinations/delusions noted Staff Interventions:: thought challenging, CBT techniques, strengths perspective, goal setting, taught coping skills and other (discussion on return to work) Client Response:: Client shared she follow through with a goal of taking time to herself to work on relaxation by spending the night at her apartment on Sunday night in which she had dinner on her own and had breakfast on her own as well. Client reported she did not enjoy being home alone because she has a hard time with quiet. Client stated when it is too quiet her mind tends to race and that is when she starts to struggle. Client reports she is proud of herself for being able to stay the night at her apartment because she has not been able to do that since her suicide attempt. Client recognizes once she is caring for her children full-time again her home will no longer be quiet and recognizes she needs to use this time to work on learning how to manage anxious thoughts and learning how to relax. Client stated she was able to take some time when she was alone to read. Client reported she did try to stay again earlier this week but felt too anxious and had to go stay with her friends. Client stated being at her friend's house does help distract her because of their farm there is plenty for her to do. Client stated she still does not feel like herself and often feels numb. Client stated not feeling quite ready to return to work next week. Therapist encouraged client to be helpful for her to have things to do and often a reduced schedule can help people get back in the swing of it. 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 Therapist encouraged client to contact her human resource department to clarify what the game plan is for next week. Client stated she does not believe her anxiety is manageable enough to be out of return immediately full-time. Client reported she did think she would be okay on more of a reduced work schedule so that she would have more to do throughout her day because it is harder to manage the thoughts because she is less to do throughout the week. Discussed aftercare options and client stated she does think working on her past trauma could be beneficial especially now that she has been triggered with her coming back in her life to file for divorce. Client stated she is feeling very anxious about this because still has not received word if her protection order has gone through. Risks/Concerns:: Denies suicide ideation, plan, or intention. No access to firearms. Future oriented. Kids serve as protective factor. Progress Toward Goals/Plan:: Progress is variable. Client showing progress with being able to manage anxiety in order to stay the night at her apartment. However client continues to report not feeling like herself and feeling somewhat numb. Client expresses concerns anxiety about returning to work especially had a full-time schedule. 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 Client does have psychosocial stressors of needing to find a new place to live by October, getting divorce papers, being trauma triggered with the divorce papers from her , and preparing to return to work. Plan is for client to continue IOP to promote healthy coping skills, prepare for transition back to work, and prevent decompensation. Client provided information by IOP therapist for recommendations for EMDR therapy in the area. Time Stopped:: 11:00
--- NOTE | 2023-07-06 09:00 | BH.SGPN.GN ---
Behaviors/Verbalizations/Mental Status: []Pt alert and oriented, neatly dressed and groomed. Eye contact good. Motor activity appropriate. Speech within normal limits. Affect constricted, mood agitated. Thoughts linear, logical, no signs of hallucinations or delusions. Reviewed pt?s symptom tracker, no risk for suicidal ideation, plan, or intent 07/06/23 Client Response/Progress/Benefit: []Pt responded well to session, attentive and providing support to peers. Pt reports feeling manic and numb today. Pt stated she feels like she is coming down from a manic episode and her mood is dropping. Pt reports when she feels this way she feels detached and negative about her ability to make progress. Pt stated her wins today include coming to IOP when she wanted to isolate due to her negative thinking about progress and her ability to continue advocating for herself. Pt appeared to benefit from peer feedback and support. Pt will continue IOP tx to prevent decompensation, improve emotional regulation skills, and increase application of healthy coping skills. Narrative Note: []
--- NOTE | 2023-07-06 10:15 | BH.SGPN.GN ---
Behaviors/Verbalizations/Mental Status: [] Eye contact is good. Motor activity is appropriate. Appearance is casual. Speech is Appropriate. Mood is euthymic. Affect is congruent. Thoughts are linear and logical. No evidence of psychosis. Client Response/Progress/Benefit: []Client was an active participant during interactive group discussions. Attentive during psychoeducation on the six types of boundaries (physical, emotional, intellectual, sexual, time, and material) AEB note-taking and input. Along with peers contributed to interactive discussion on defining what a boundary is in mental health. Client along with peers identified challenges to setting boundaries which included; lack of self awareness, guilt, generational cycles, fear of disappointing the other person, etc. Client shared personal example of always putting others needs above herself when wanting to set a boundary. Client along with peers identified the benefits to setting boundaries such as increased identify of self, genuine relationships, self-care, and increased confidence. Group discussed the mental health benefits to establishing boundaries at work, school, and home. Client benefited from increased awareness and insight on the importance/benefit to setting health boundaries. Will continue in IOP to prevent decompensation, increase self worth, and improve functioning. Narrative Note: [] Behaviors/Verbalizations/Mental Status: [] Eye contact is good. Motor activity is appropriate. Appearance is casual. Speech is Appropriate. Mood is euthymic. Affect is congruent. Thoughts are linear and logical. No evidence of psychosis. Client Response/Progress/Benefit: []Client was an active participant during interactive group discussions. Attentive during psychoeducation on the six types of boundaries (physical, emotional, intellectual, sexual, time, and material) AEB note-taking and input. Along with peers contributed to interactive discussion on defining what a boundary is in mental health. Client along with peers identified challenges to setting boundaries which included; lack of self awareness, guilt, generational cycles, fear of disappointing the other person, etc. Client shared personal example of always putting others needs above herself when wanting to set a boundary. Client along with peers identified the benefits to setting boundaries such as increased identify of self, genuine relationships, self-care, and increased confidence. Group discussed the mental health benefits to establishing boundaries at work, school, and home. Client benefited from increased awareness and insight on the importance/benefit to setting health boundaries. Will continue in IOP to prevent decompensation, increase self worth, and improve functioning. Narrative Note: []
--- NOTE | 2023-07-06 11:15 | BH.SGPN.GN ---
Behaviors/Verbalizations/Mental Status: [] Eye contact is good. Motor activity is appropriate. Appearance is casual. Speech is Appropriate. Mood is euthymic. Affect is congruent. Thoughts are linear and logical. No evidence of psychosis. Client Response/Progress/Benefit: [] Client responded well to session AEB listening attentively to peers, providing some input, as well as taking notes throughout. Client contributed more throughout psychoeducation on different boundary setting styles which is progress as she has struggled to share in prior groups. Reports connecting most with porous style of boundary setting, identifying that they are usually that way but there mood greatly impacts that indicated she lets other's thoughts and opinions of her get to them. Participated in group discussion brainstorming various strategies for improving healthy boundary settings, as a group identified practicing in a mirror, starting with easy/small boundaries, and not overly apologizing as strategies to try. Seemed to benefit from increased awareness of how different boundary styles can impact mental health. Will continue IOP tx to increase consistent application of skills, increase self-care, and prevent decompensation. Narrative Note: [] Behaviors/Verbalizations/Mental Status: [] Eye contact is good. Motor activity is appropriate. Appearance is casual. Speech is Appropriate. Mood is euthymic. Affect is congruent. Thoughts are linear and logical. No evidence of psychosis. Client Response/Progress/Benefit: [] Client responded well to session AEB listening attentively to peers, providing some input, as well as taking notes throughout. Client contributed more throughout psychoeducation on different boundary setting styles which is progress as she has struggled to share in prior groups. Reports connecting most with porous style of boundary setting, identifying that they are usually that way but there mood greatly impacts that indicated she lets other's thoughts and opinions of her get to them. Participated in group discussion brainstorming various strategies for improving healthy boundary settings, as a group identified practicing in a mirror, starting with easy/small boundaries, and not overly apologizing as strategies to try. Seemed to benefit from increased awareness of how different boundary styles can impact mental health. Will continue IOP tx to increase consistent application of skills, increase self-care, and prevent decompensation. Narrative Note: []
--- NOTE | 2023-07-10 09:00 | BH.SGPN.GN ---
Behaviors/Verbalizations/Mental Status: []Eye contact is fair. Motor activity is appropriate. Appearance is casual. Speech is Appropriate. Mood is anxious and dysthymic. Affect is congruent. Thoughts are linear and logical. No evidence of psychosis. Reviewed daily check in sheet and denies suicidal thoughts or intention. Client Response/Progress/Benefit: [] Client responded well to session AEB listening to others and sharing thoughts/feelings. Client shared she had a rough week or so. Client stated she stopped taking her meds last week and stopped going to the gym which she recognizes are decisions that really sabotaged her progress. Client stated mental positive as showing up to IOP today instead of just returning send she has been struggling. Client stated additional mental positive as spending time with her kids on the weekend and really being present with them. Client stated she recognizes she needs to get back to doing the things that had been helping her feel better. Client stated her stressor is work and not allowing her to go back on a reduced schedule to get used to being back in that environment. Appeared to benefit from support from peers. Will continue IOP tx to increase consistent use of healthy coping skills, decrease self-destructive behaviors, and prevent decompensation. Narrative Note: []
--- NOTE | 2023-07-10 10:05 | BH.SGPN.GN ---
Behaviors/Verbalizations/Mental Status: []Pt alert and oriented, casually dressed and groomed. Eye contact good. Motor activity appropriate. Speech within normal limits. Affect congruent, mood content. Thoughts linear, logical, no signs of hallucinations or delusions. Client Response/Progress/Benefit: []Pt was an active participant in group discussion and activity. Attentive during psychoeducation. Along with peers, pt was able to identify barriers to taking action in their life. Identified several symptoms and stressors that pt feels are holding them back from progress such as negative self-talk, unrealistic expectations, poor boundaries, lack of acceptance, unwillingness to ask for help. Stated these things have kept pt from making healthy changes, seeking help, improving relationships, and being kinder to herself. Pt shared wanting to begin addressing the impact unrealistic expectations has had on their ability to take action. Benefited from increased self-awareness of obstacles. Will continue IOP tx to improve mood management, promote consistent skill application, and further improve self-care and self-compassion. Narrative Note: []
--- NOTE | 2023-07-11 10:10 | BH.SGPN.GN ---
Behaviors/Verbalizations/Mental Status: [] Eye contact is good. Motor activity is appropriate. Appearance is casual. Speech is Appropriate. Mood is euthymic. Affect is full. Thoughts are linear and logical. No evidence of psychosis. Client Response/Progress/Benefit: [] Client responded well to session AEB sharing and listening attentively to others. Group identified types of social support (family, pets, professionals, spiritual, etc) and provided examples of benefits of having social support, including: decreased stress, increased self-esteem, encouragement, distraction, etc. Client also participated in group discussion regarding the barriers to accessing support such as: lack of awareness, lack of trust, and low self-esteem. Client participated in experiential activity illustrating the impact communication, boundaries, and patience play in creating healthy support systems. Client appeared to benefit from increased knowledge of the benefits of social support and greater self-awareness. Will continue IOP to prevent decompensation/re-admission to psych unit, stabilize mood, improve functioning to return to work, and increase healthy coping strategies. Narrative Note: []
--- NOTE | 2023-07-11 11:47 | BH.MDN ---
Multi-Disciplinary Note Note 45-min Individual: Time Started:: 09:05 Date: 07/11/23 Purpose of session/treatment goals addressed:: Purpose of session was to address goals 1 and 2 from MTP. Eye Contact:: Fair Motor Activity:: Restless Appearance:: Casual Speech:: Appropriate Mood:: Anxious and Dysthymic Affect:: Congruent Thoughts:: Linear, Logical and No evidence of hallucinations/delusions noted Staff Interventions:: thought challenging, CBT techniques, discharge planning, strengths perspective, goal setting, taught coping skills and other (Problem-solving) Client Response:: Client stated she has been struggling for the past week with increased anxiety and depression. Client reported she had forgotten to take her medication on the days last week and then to stop taking it after that. Client realizes this was not helpful for her mental health because she has continued to spiral downward and recognizes she needs to get back on her medications starting tomorrow morning. Client stated she had also stopped working out which had been something that was a healthy coping skill for her. Client reported she also has been isolating from her supportive friends for the last 4 days. Client stated she is feeling very stressed about her work situation since they would not let her return on a reduced schedule. Client reported she does not feel ready to go back full-time but did feel ready to go back on a part-time basis. Client stated she is just anxious she is going to get her kids back full-time and go back to work which will lead her to go back to how she was doing mentally. Client open to thought challenge with assistance from therapist. Client and therapist work together to problem solve a better transition to full-time work and transitioning the kids back into her daily routine. Client stated originally her kids were supposed to come back to her house full-time after she got back from her work trip but she just found out last week that she would not be allowed to go on the work trip that she earned due to not being back to work yet. 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 Client reported she is having a lot of anxious thoughts that she has not been to be able to succeed but able to challenge that she has been succeeding with being a mother for the last 4 years even through rough moments. Risks/Concerns:: Denies suicidal ideation, plan, and intention. Future oriented. Children serve as protective factor. Progress Toward Goals/Plan:: Recent slight decompensation in progress as evidenced by client reporting increased depression and anxiety, stopped utilizing her medications for 1 week, isolating, and not working out as a healthy coping skill. Client reported feeling more emotional and having increased negative thinking recently. Client plans to get back on her medication tomorrow morning because she recognizes the value it provides mood stabilization. Although client reports continued anxiety about returning back to work and having her kids full-time she is challenging negative thoughts and realizes that she can do this. Plan is for client to return back to work full-time on July 30, 2023. Client is to talk to her mom today about having the kids return to her house [employer] starting on Sunday which would give her time to adjust back into this role and responsibility while having support of [facility]. Time Stopped:: 09:50
--- NOTE | 2023-07-11 12:36 | PCM.BH.PN ---
Progress Note Progress Note: History of Present Illness/Interim History: The patient is a 28-year-old but female with a history of bipolar 2 disorder and ADHD who is seen in follow-up at the [facility] behavioral health [facility] where she has been treated for worsening depression and anxiety. I last saw the patient 4 weeks ago and at that time prazosin was added for nightmares. The patient discontinued her meds on her own because I forgot to take them 1 time and then I kept forgetting. She states that she feels foggy in the morning and is unable to remember things short-term when she is off her Adderall. Her primary care doctor gives her her Adderall XR but they stopped it when she was placed on the Abilify. The patient was supposed to return to work this week but she is has delayed this until July 30, 2023 because they will not let her return to work part-time. The patient states that she plans to restart her medications tomorrow. She states that her symptoms are little better and that she has no hopelessness and denies any worthlessness now. She now is enjoying being with her kids and her friends and feels a little more optimistic. Her passive thoughts of are much rare now. She denies any suicidal ideation, plan for suicide, homicidal ideation, hallucinations or delusions. Her children remain protective against suicide. Current Psychiatric Medications: [] Abilify 5 mg p.o. daily (x 4 weeks and then stopped 1 week ago by patient); Zoloft 150 mg p.o. daily; trazodone of unknown dose 1 at bedtime. Mental Status Examination: [] The patient is a 28-year-old female who is casually dressed and groomed with good hygiene and appears normal for stated age. She is ambulatory with a normal gait and has no psychomotor agitation or retardation. Eye contact is good and speech is normal rate and rhythm and fluent with no pressure. She is cooperative and pleasant during the interview. Mood is depressed and anxious. Affect is mildly constricted. Thought process is goal directed and organized. Thought content: There is evidence of lessening and only occasional passive thoughts of . There is no evidence of suicidal ideation, plan for suicide, homicidal ideation, hallucinations or delusions. Reality testing is intact. Judgment is intact. Impulsivity is high. Insight: Limited but some present. Diagnoses: [] 1. Bipolar 2 disorder (currently depressed) 2. PTSD 3. Generalized anxiety disorder 4. Strong cluster B traits 5. Primary support and work issues 6. ADHD Plan: [] The patient will continue the [facility] and behavioral health that [facility] as the structure, support, education and group therapy will hopefully prevent worsening of the patient's symptoms which could require rehospitalization. The patient felt safe during the interview and if it anytime she does not feel safe she agrees to let us know or go to the emergency room. The risks, options, possible complications and side effects of the medications were discussed with the patient and she understands accepts these. The patient agrees to restart her medications that she went off for 1 week. In addition Adderall XR 20 mg p.o. every morning as prescribed for the patient. She will continue to follow-up with her outpatient providers and I will see the patient in follow-up in several weeks.
--- NOTE | 2023-07-13 09:05 | BH.SGPN.GN ---
Behaviors/Verbalizations/Mental Status: [] Eye contact is good. Motor activity is appropriate. Appearance is casual. Speech is Appropriate. Mood is depressed. Affect is congruent. Thoughts are linear and logical. No evidence of psychosis. Reviewed daily check in sheet and no reports of suicidal ideations or intent. Client Response/Progress/Benefit: [] Pt was an active participant in group discussion. Attentive. Daily symptom tracker notes /5 for anxiety and 2/5 for depression. Pt states I feel myself slipping I know that I'm slipping. Shared increased urges to self-harm which led to getting a tattoo and nose piercing. Elaborated on urges to self-sabotage as things are getting real. She is scheduled to return to work on 07/29 which is a big stressor as she has been off work for 2 months. I feel I'm not ready but I am. Insight that she has had progress in the past several months which included getting diagnosed with Bipolar, starting medications, and learning skills. Insight that she is better than she has been in the past. She is back to being med compliant in the past few days. Group empathized and provided support and feedback which was helpful. Regression noted this past week. Will continue in IOP to maintain safety, prevent decompensation, stabilize mood, and improve functioning. Narrative Note: []
--- NOTE | 2023-07-13 10:10 | BH.SGPN.GN ---
Behaviors/Verbalizations/Mental Status: [] Eye contact is good. Motor activity is appropriate. Appearance is casual. Speech is Appropriate. Mood is euthymic. Affect is congruent. Thoughts are linear and logical. No evidence of psychosis. Client Response/Progress/Benefit: [] Pt receptive of session, actively engaged throughout AEB taking notes, providing input, and contributing in small group discussion. Appeared to connect with group topic of automatic thoughts and cognitive distortions and the impact of thought patterns on mental health, coping behaviors, and relationships. This particular group is very heavy on psychoeducation however pt appeared to connect with distortions and how they can impact functioning. Pt appeared to benefit from gaining insight on distorted thinking patterns and how this impacts overall mental health. Will continue IOP to increase healthy coping skills, improve confidence, and prevent decompensation.
--- NOTE | 2023-07-13 11:10 | BH.SGPN.GN ---
Behaviors/Verbalizations/Mental Status: []Pt alert and oriented, neatly dressed and groomed. Eye contact good. Motor activity appropriate. Speech within normal limits. Affect congruent, mood euthymic. Thoughts linear, logical, no signs of hallucinations or delusions Client Response/Progress/Benefit: [] Pt was an active participant during group discussion. Pt was placed in a smaller group and participated in combatting example distortions with peers. Pt was engaged in the smaller group, participated in group interactions to brainstorm answers, and appeared to be comprehending cognitive distortions. Stated she connects a lot with emotional reasoning, catastrophizing, and personalizing. Pt gave example of personalizing, sharing that sometimes she feels like a failure if she cannot make other people happy. Benefited from gaining further insight and awareness of cognitive distortions as well as practicing ways to reframe and challenge thoughts. Will continue in IOP to promote mood stability, reduce negative self-talk, and increase distress tolerance. Narrative Note: []
--- NOTE | 2023-07-17 10:10 | BH.SGPN.GN ---
Behaviors/Verbalizations/Mental Status: []Eye contact is fair. Motor activity is appropriate. Appearance is casual. Speech is Appropriate. Mood is anxious. Affect is congruent. Thoughts are linear and logical. No evidence of psychosis. Client Response/Progress/Benefit: []Pt participated during the group discussion. Attentive during psychoeducation and actively engaged during experiential activity. Participated during interactive discussion on aspects of fixed mindset. Group identified several aspects of fixed mindset which include: inflexible, belief that one cannot grow, absolute thinking, and all of one's skills, traits, and behaviors can't change. Group identified personal examples of fixed thinking in which pt shared personal fixed thoughts as: I can't get better, I'm too broken, and Meds with not fix me, I am too forgetful to consistently take them. Benefited from increased understanding of personal fixed mindsets and how they can impact mental health. Will continue in IOP to increase consistent use of healthy coping skills, challenge distortions, and prevent decompensation.
--- NOTE | 2023-07-17 10:16 | BH.MDN_ITS ---
Multi-Disciplinary Note Note 45-min Individual: Time Started:: 09:05 Date: 07/17/23 Purpose of session/treatment goals addressed:: Purpose of session was to address goals 1 and 2 from MTP. Eye Contact:: Good Motor Activity:: Appropriate Appearance:: Casual Speech:: Appropriate Mood:: Euthymic and Anxious (slightly) Affect:: Congruent Thoughts:: Linear, Logical and No evidence of hallucinations/delusions noted Staff Interventions:: thought challenging, CBT techniques, strengths persp ective, goal setting, taught coping skills and other (routine/structure/returning back to work) Client Response:: Client reported she is feeling more positive this week compared to last week. Client stated she restarted her medications middle of last week. Client reported she recognizes she started self-sabotaging two weeks ago, but is back on path to get to where she was. Client stated she did have conversation with her mom about getting her kids back full-time starting this week. Client reported mom suggested client transition kids back after two weeks of being back to work full-time. Client stated she does think this will be a better plan for her. Client worked with therapist to start discussion about creating routine/structure next week in preparation for returning back to work full-time on 07/29. Client stated she wants to get up every morning by 5:30am to give her time to work out before she will have to get her kids ready for daycare. 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 Client worked with therapist to problem solve identify strategies to help manage her stressors and returning to work. Client identified will be important to set boundaries well at work and she feels more able to stand up for herself if needed. Client stated her boss can be degrading to her and other coworkers which makes her feel anxious and stressed when she is at work. Reported she does feel more confident and believes she can stand up for herself. Client reported although she doesn't feel completely ready to return back to work full-time she knows she has no choice and just needs to plan return. Risks/Concerns:: Denies suicidal ideation, plan, or intention to date. future oriented. Progress Toward Goals/Plan:: Progress noted with client accepting that she has to return to work full-time in two weeks. Client started to think about what she can do while at work to successfully transition back. Client doing better with problem solving and challenging negative automatic thoughts. Client continues to struggle with follow through on evening routine and hasn't gotten back to working out. Plan is for client to continue IOP to create return to work plan, challenge distorted thoughts, and prevent decompensation. Client has been provided with outpatient therapist information two weeks ago, but did not call again. Client agreeable to reach out to outpatient therapist again. Time Stopped:: 09:50
--- NOTE | 2023-07-17 11:10 | BH.SGPN.GN ---
Behaviors/Verbalizations/Mental Status: []Pt alert and oriented, casually dressed and groomed. Eye contact good. Motor activity appropriate. Speech within normal limits. Affect congruent, mood calm. Thoughts linear, logical, no signs of hallucinations or delusions. Client Response/Progress/Benefit: [] Pt was an active participant during activity and discussion. Pt did well to remain attentive and participate as group worked on identifying characteristics and benefits of adopting a growth mindset. Worked with fellow participants in reframing the example fixed thoughts into growth mindset thoughts. Pt worked on changing own fixed thought and reframed the thought to ?it may be hard to see the end result now, but I am making progress and healing every day.? Pt appeared to benefit from challenging own thoughts and engaging in the activity. Pt will continue IOP tx to increase distress tolerance skills, increase self-compassion, and combat negative thinking patterns. ? Narrative Note: []
== END 2023-07-17 23:59 ==
LOC: BHIOP 07:15
PROVIDERS: PCP Student in an Organized Health Care Education/Training Program; Referring Provider Psychiatry & Neurology Psychiatry; Visit Provider Psychiatry & Neurology Psychiatry
DX: F31.81 Bipolar II disorder (principal); F43.10 Post-traumatic stress disorder, unspecified; F41.1 Generalized anxiety disorder; F90.9 Attention-deficit hyperactivity disorder, unspecified type; Z79.899 Other long term (current) drug therapy
CPT/HCPCS: 99214; H2012; H2020; S9480; 90832; 90834

== ENCOUNTER 2023-07-18 06:32 | Outpatient (RCR) | payer MEDICAID, SELFPAY ==
[2023-07-18 00:44] VITALS: BP 124/77; PULSE 83
--- NOTE | 2023-07-18 14:18 | BH.MTP_ITS ---
Treatment Plan Review Demographics Date of Admission:: 06/11/23 Date of Treatment Plan Review:: 07/04/23 Admitting Diagnoses:: 1. Bipolar 2 disorder F31.81 2. PTSD 3. Generalized anxiety disorder 4. Cluster B traits 5. Primary support and work issues 6. ADHD diagnosed at age 24. Current Diagnoses:: 1. Bipolar 2 disorder F31.81 2. PTSD 3. Generalized anxiety disorder 4. Cluster B traits 5. Primary support and work issues 6. ADHD diagnosed at age 24. Patient Status Patient's Response to Treatment:: Client overall consistently attends IOP sessions and often engages in group therapy sessions. Client does struggle at times with applying skills outside treatment environment. Client does engage in individual therapy sessions. Status of Current Problems and Symptoms: Ongoing problems. Client showing progress with being able to manage anxiety in order to stay the night at her apartment. However client continues to report not feeling like herself and fee ling somewhat numb. Client expresses concerns anxiety about returning to work especially had a full-time schedule. 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 Client does have psychosocial stressors of needing to find a new place to live by October, getting divorce papers, being trauma triggered with the divorce papers from her , and preparing to return to work. Endorses down mood, increased anxiety, some avoidance of anxiety provoking situations, and not feeling ready to return to work. Progress Problem #1: Problem Name:: Depression Status of Goals:: Obj 1 - met, ongoing work encouraged. Client is able to identify healthy coping skills like opposite action, engaging in hobbies, and getting back into doing activities she used to enjoy. Client does struggle with consistently applying these skills. Obj 2 - not met. Client is reporting improved ability to identify her negative/distorted thought patterns, but is still working on being able to challenge the thoughts independently. Team Recommendations:: Team recommends continued work on current goals and objectives with focus on increasing consistent use of skills outside treatment environment. Problem #2: Problem Name:: Anxiety Status of Goals:: obj 1 - not met. Client is able to identify healthy calming skills, but reports challenges with using skills on a consistent basis. On DSM 5 at review client continues to report moderate anxious symptoms. obj 2 - not met. Client has shown recent improvement with this objective AEB recently spending time alone at her apartment to read and have breakfast. Client still avoids being alone as much as she can due to anxious thoughts and not wanting to ruminate. Team Recommendations:: Team recommends continued work on current goals and objectives with focus on increasing consistent use of skills outside treatment environment.
--- NOTE | 2023-07-19 09:05 | BH.SGPN.GN ---
Behaviors/Verbalizations/Mental Status: [] Eye contact is good. Motor activity is appropriate. Appearance is casual. Speech is Appropriate. Mood is depressed. Affect is congruent. Thoughts are linear and logical. No evidence of psychosis. Reviewed daily check in sheet and no reports of suicidal ideations or intent. Client Response/Progress/Benefit: [] Pt was an active participant in the group discussions. Attentive. Daily symptom tracker notes 05/21 for depression. Pt reports her emotion today is keith. States I'm super dissociated today A lot of stressors. She reports that she is looking for clarify with her job, legal issues (divorce), and her life. Is planning to return to work on 07/30/23. Work environment is a significant stressor. She does report that she is consistently taking her medications. Limited progress noted as she is feeling overwhelmed. Benefited from group support, encouragement, and feedback. Will continue in IOP to maintain safety, prevent decompensation, and improve functioning to return to work. Narrative Note: []
--- NOTE | 2023-07-24 10:19 | BH.COMM_ITS ---
Communication Note Communication with Client Communication Note: Pt no showed/no called IOP days scheduled on 07/20/23 and 07/24/23. This development writer left VM for client to return phone call.
--- NOTE | 2023-07-24 10:19 | BH.COMM ---
Communication Note Communication with Client Communication Note: Pt no showed/no called IOP days scheduled on 07/20/23 and 07/24/23. This machine sign writer left VM for client to return phone call.
--- NOTE | 2023-07-25 09:05 | BH.SGPN.GN ---
Behaviors/Verbalizations/Mental Status: [] Eye contact is good. Motor activity is appropriate. Appearance is casual. Speech is Appropriate. Mood is euthymic. Affect is congruent. Thoughts are linear and logical. No evidence of psychosis. Reviewed daily check in sheet and no reports of suicidal ideations or intent. Client Response/Progress/Benefit: [] Pt was an active participant in group discussion. Attentive. No distress noted on daily symptom tracker. States I've had a good past week I'm feeling more like myself. Increased energy, engagement, and reports feeling more productive. Taking her medications consistently. Utilizes skills consistently. Reframing and challenging thoughts. Reports finding a good balance. Insight that her progress is linear stating that yesterday was a low day however able to identify and implement skills to minimize impact of distress. She is planning to return to work next week and feels prepared. Benefited from group support, encouragement, and feedback. Pt was scheduled to discharge from [facility] on 07/26/23, however she spoke with her therapist after group and would like to discharge today. Narrative Note: []
--- NOTE | 2023-07-25 10:10 | BH.SGPN.GN ---
Behaviors/Verbalizations/Mental Status: []Pt alert and oriented, neatly dressed and groomed. Eye contact good. Motor activity appropriate. Speech within normal limits. Affect congruent, mood euthymic. Thoughts linear, logical, no signs of hallucinations or delusions. Client Response/Progress/Benefit: []Pt active participant AEB pt providing input throughout group discussion. Showed engagement during small group discussions and worked with group on identifying how each defense mechanism can impact mental health and gave examples. Pt was engaged during small group discussion and expressed connecting with several of the defense mechanisms reviewed. Pt reported connecting with humor, denial, and suppression. ?Seemed to benefit from gaining awareness about the different defense mechanisms. Pt to discharge from IOP tx today as pt has met her tx goals and no longer meets criteria for IOP level of care. Narrative Note: []
--- NOTE | 2023-07-25 11:10 | BH.SGPN.GN ---
Behaviors/Verbalizations/Mental Status: []Pt alert and oriented, neatly dressed and groomed. Eye contact good. Motor activity appropriate. Speech within normal limits. Affect congruent, mood euthymic. Thoughts linear, logical, no signs of hallucinations or delusions. Client Response/Progress/Benefit: [] Pt responded well to session, participating in activity and small group discussion. Group reviewed the rest of the defense mechanisms and discussed how these are adaptive, maladaptive, or somewhere in the valencia. Pt participated in the experiential activity which encouraged pts to draw a castle that portrayed their different defense mechanisms. Pt's defense mechanisms included denial, humor, and suppression. Pt identified that most of her defense mechanisms are still maladaptive. Pt stated today she learned the importance of communicating her defense mechanisms with supports. Pt listened to fisheries technical officer teach different skills to help pt?s cope with or change their defense mechanisms. Pt appeared to benefit from gaining insight to the different defense mechanisms and learning coping skills. Pt will discharge from IOP tx today as pt has accomplished her tx goals and no longer meets criteria for IOP level of care. ?? Narrative Note: []
--- NOTE | 2023-07-25 14:11 | BH.MDN_ITS ---
Multi-Disciplinary Note Note 30-min Individual: Time Started:: 12:05 Date: 07/25/23 Purpose of session/treatment goals addressed:: Purpose of session was to identify treatment progress, complete maintenance plan, and solidify aftercare plans. Eye Contact:: Good Motor Activity:: Appropriate Appearance:: Casual Speech:: Appropriate Mood:: Euthymic Affect:: Full Thoughts:: Linear, Logical and No evidence of hallucinations/delusions noted Staff Interventions:: CBT techniques, discharge planning, strengths perspective, reviewed DSM-5 and other (maintenance plan) Client Response:: Client reported she's been doing really well over the last week with improved motivation, improved outlook on life, improve motivation, and improve daily functioning. Client stated she also was able to find a different job does she plans to start in about a month. Client reported she believes this move to a different job is gonna be really healthy for her because it's something that she enjoys and it's gonna get her out of an environment that she wasn't super happy in. Carlos stated just knowing that she's gonna start a new position in one month has really improved her mood and decrease anxiety. Client stated she does feel ready to discharge from [facility] and is ready to return to work starting next week. 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 Client worked with therapists to complete maintenance plan in which she identified possible triggers, warning signs, self-care activities, and healthy coping skills and strategies. Client stated she's noted significant progress with mood stabilization, decreased anxiety, Decrease depression, no active suicidal ideation, and improved daily functioning. Client stated she's been able to stay the night at her apartment without having significant anxiety which is progress for her because she had been staying at her friend's house majority of the weeks since her suicide attempt. Risks/Concerns:: Denies active suicidal ideation, plan, or intention to date. future oriented. Progress Toward Goals/Plan:: Progress noted as evidenced by client scores on DSM-V cross cutting symptom measure completed at discharge. At discharge her scores indicate a 50% reduction in depression, a 83% reduction in anxiety, and overall 43% and reduction of symptoms when compared to admission scores. Client reports improved daily functioning, decrease in avoiding being alone, better able to manage anxious symptoms, and doing better with challenge distorted negative thoughts. Client does report her anxiety has likely decreased significantly after being presented with new career option that would help her leave a workplace that she feels is toxic for her mental health. Time Stopped:: 12:35
--- NOTE | 2023-07-25 14:50 | BH.DS_ITS ---
Discharge Summary Demographics Date of Admission:: 06/11/23 Discharge Date: 07/25/23 Presenting Problems at Admission:: The patient is a 28-year-old but still female with a history of bipolar 2 disorder and ADHD who was referred to the [facility] behavioral health IOP by her outpatient psychiatric provider for worsening symptoms of depression and anxiety causing her to be unable to function well. admitted to [facility] psychiatric unit from May 11 to May 18, 2023. The patient overdosed on Zoloft prior to her admission on May 11. Work has been stressful and has contributed to her worsening symptoms as did a recent break-up with a boyfriend of 6 weeks. She has panic attacks 1-3 times per day. In the past 2 weeks her symptoms include still being depressed and sad and crying on occasion. Occasional hopelessness over certain aspects of her life only. She endorses worthlessness, guilt, decreased concentration, low energy, disruption of sleep due to panic attacks overnight and decreased appetite. Objectives Discharge Diagnoses:: 1. Bipolar 2 disorder F31.81 2. PTSD 3. Generalized anxiety disorder 4. Cluster B traits 5. Primary support and work issues 6. ADHD diagnosed at age 24. Reason for Discharge:: Client has demonstrated treatment progress and is scheduled to return back to work full-time on 07/30/23. Treatment Progress During Treatment & Response: Progress noted as evidenced by client scores on DSM-V cross cutting symptom measure completed at discharge. At discharge her scores indicate a 50% reduction in depression, a 83% reduction in anxiety, and overall 43% and reduction of symptoms when compared to admission scores. Client reports improved daily functioning, decrease in avoiding being alone, better able to manage anxious symptoms, and doing better with challenge distorted negative thoughts. Client does report her anxiety has likely decreased significantly after being presented with new career option that would help her leave a workplace that she feels is toxic for her mental health. Issues Still to be Addressed:: Client could benefit from doing trauma treatment. Client also could benefit from continued work on building confidence, improving view of self, consistent use of healthy coping skills, and building healthy support system. Discharge Recommendations/Instructions:: Client had been given information for counseling recommendations several weeks ago. Client has not reached out to the counselor provided. Client states she will contact the counselor tomorrow. Client states she has enough medications for the next month. Plans to follow up with primary care doctor for medication management. Discharge Handout
== END 2023-07-25 13:26 | disposition home or self-care (01) ==
LOC: BHIOP 06:32
PROVIDERS: PCP Student in an Organized Health Care Education/Training Program; Referring Provider Psychiatry & Neurology Psychiatry; Visit Provider Psychiatry & Neurology Psychiatry
DX: F31.81 Bipolar II disorder (principal); F43.10 Post-traumatic stress disorder, unspecified; F41.1 Generalized anxiety disorder; F90.9 Attention-deficit hyperactivity disorder, unspecified type; Z79.899 Other long term (current) drug therapy
CPT/HCPCS: H2012; H2020; S9480; 90832